=== PATIENT | female | born 1980 | race Caucasian/White ===

== ENCOUNTER → 2018-01-01 | Outpatient (REF) | payer MEDICAID | LOC: M LAB REF 18:59 | DX: F19.10 Other psychoactive substance abuse, uncomplicated (principal) ==

== ENCOUNTER → 2018-01-15 | Outpatient (REF) | payer MEDICAID | LOC: M LAB REF 17:49 | DX: F19.10 Other psychoactive substance abuse, uncomplicated (principal) ==

== ENCOUNTER → 2018-01-29 | Outpatient (REF) | payer MEDICAID | LOC: M LAB REF 16:51 | DX: F19.10 Other psychoactive substance abuse, uncomplicated (principal) ==

== ENCOUNTER → 2018-02-05 | Outpatient (REF) | payer MEDICAID ==
[2018-02-15 08:06] LABS: AMPHETAMINE SCREEN, URINE Negative ng/mL (Cutoff=1000); BARBITURATES SCREEN, URINE Negative ng/mL (Cutoff=200); BENZODIAZEPINES, URINE SCREEN Negative ng/mL (Cutoff=200); CANNABINOID SCREEN, URINE Negative ng/mL (Cutoff=20); COCAINE SCREEN, URINE Negative ng/mL (Cutoff=300); CREATININE, URINE 26.4 mg/dL (20.0-300.0); FENTANYL URINE SCREEN Negative pg/mL (Cutoff=2000); METHADONE, URINE SCREEN Negative ng/mL (Cutoff=300); NALOXONE RESULT Positive (.); OPIATE SCREEN, URINE Negative ng/mL (Cutoff=300); OXYCODONE, SCREEN, URINE Negative ng/mL (Cutoff=100); PCP SCREEN, URINE Negative ng/mL (Cutoff=25); SPECIFIC GRAVITY, URINE 1.009 (.); URINE BUPRENORPHINE Positive (.); URINE BUPRENORPHINE Positive (Cutoff=10); URINE BUPRENORPHINE See Final Results ng/mL (Cutoff=10); URINE BUPRENORPHINE CONFIRM 56 ng/mL (Cutoff=10); URINE NORBUPRENORPHINE Positive (.); URINE NORBUPRENORPHINE CONFIRM 182 ng/mL (Cutoff=10); pH, URINE 6.8 (4.5-8.9)
== END ==
LOC: M LAB REF 09:19
DX: F19.10 Other psychoactive substance abuse, uncomplicated (principal)

== ENCOUNTER → 2018-02-12 | Outpatient (REF) | payer MEDICAID ==
[2018-02-25 08:07] LABS: AMPHETAMINE SCREEN, URINE Negative ng/mL (Cutoff=1000); BARBITURATES SCREEN, URINE Negative ng/mL (Cutoff=200); BENZODIAZEPINES, URINE SCREEN Negative ng/mL (Cutoff=200); CANNABINOID SCREEN, URINE Negative ng/mL (Cutoff=20); COCAINE SCREEN, URINE Negative ng/mL (Cutoff=300); CREATININE, URINE 14.5 mg/dL (20.0-300.0); FENTANYL URINE SCREEN Negative pg/mL (Cutoff=2000); METHADONE, URINE SCREEN Negative ng/mL (Cutoff=300); NALOXONE RESULT Positive (.); OPIATE SCREEN, URINE Negative ng/mL (Cutoff=300); OXYCODONE, SCREEN, URINE Negative ng/mL (Cutoff=100); PCP SCREEN, URINE Negative ng/mL (Cutoff=25); URINE BUPRENORPHINE Positive (.); URINE BUPRENORPHINE Positive (Cutoff=10); URINE BUPRENORPHINE See Final Results ng/mL (Cutoff=10); URINE BUPRENORPHINE CONFIRM 32 ng/mL (Cutoff=10); URINE NORBUPRENORPHINE Positive (.); URINE NORBUPRENORPHINE CONFIRM 88 ng/mL (Cutoff=10); pH, URINE 5.6 (4.5-8.9)
== END ==
LOC: M LAB REF 07:43
DX: F19.10 Other psychoactive substance abuse, uncomplicated (principal)

== ENCOUNTER → 2018-03-05 | Outpatient (REF) | payer MEDICAID | LOC: M LAB REF 17:24 | DX: F19.10 Other psychoactive substance abuse, uncomplicated (principal) ==

== ENCOUNTER → 2018-03-07 | Outpatient (REF) | payer MEDICAID | LOC: M LAB REF 16:42 | DX: F19.10 Other psychoactive substance abuse, uncomplicated (principal) ==

== ENCOUNTER 2019-01-05 21:38 | Inpatient (IN) | payer MEDICAID, OTHER ==
[~2019-01-05] VITALS: Ht 154.9 cm; Wt 60.5 kg
[~2019-01-05 21:38] MED LIST: ASPI325T PO; DOCU5LIQ PO; NEUR600T PO; OXYC1TAB23 PO; SERO1TAB PO
[2019-01-05] MEDS ORDERED: SUBO8MIS SL (21:48)
[2019-01-05] MEDS ORDERED: GABA600T4 PO (21:48)
[2019-01-05] MEDS ORDERED: WELLTAB40 PO (21:48)
[2019-01-05] MEDS ORDERED: ADACEL/BOOSTRIX VACCINE (DIPHTH/PERTUSS/ACELL/TETANUS)0.5ML SYR (90715) IM ONE (22:15)
[2019-01-05] MEDS ORDERED: BACTRIM 160MG/800MG DS TAB PO ONE (22:15)
[2019-01-05 22:34] LABS: HEMATOCRIT 31.9 % (36.0-47.0); HEMOGLOBIN 10.6 g/dl (12.0-15.5); MEAN CORPUSCULAR HEMOGLOBIN 29.8 pg (27.0-33.0); MEAN CORPUSCULAR HGB CONC 33.2 g/dl (32.0-36.5); MEAN CORPUSCULAR VOLUME 89.6 fl (80.0-96.0); PLATELET COUNT, AUTOMATED 270 10^3/uL (150-450); RED BLOOD COUNT 3.56 10^6/uL (4.00-5.40); WHITE BLOOD COUNT 8.4 10^3/uL (4.0-10.0)
[2019-01-05 22:57] LABS: AMPHETAMINES LEVEL URINE POSITIVE (NEGATIVE); BARBITURATES URINE NEGATIVE (NEGATIVE); BENZODIAZEPINES URINE NEGATIVE (NEGATIVE); CANNABINOIDS URINE POSITIVE (NEGATIVE); COCAINE METABOLITE URINE NEGATIVE (NEGATIVE); METHADONE URINE NEGATIVE (NEGATIVE); OPIATES URINE NEGATIVE (NEGATIVE); PHENCYCLIDINE URINE NEGATIVE (NEGATIVE)
[2019-01-05 23:14] LABS: ACETAMINOPHEN LEVEL < 2.0 UG/ML (10.0-30.0); ALBUMIN 3.3 GM/DL (3.2-5.2); ALT/SGPT 31 U/L (12-78); BILIRUBIN,DIRECT < 0.1 MG/DL (0.0-0.2); BILIRUBIN,TOTAL 0.2 MG/DL (0.2-1.0); BLOOD UREA NITROGEN 8 MG/DL (7-18); CALCIUM LEVEL 8.1 MG/DL (8.5-10.1); CARBON DIOXIDE LEVEL 29 MEQ/L (21-32); CHLORIDE LEVEL 106 MEQ/L (98-107); CREATININE FOR GFR 0.61 MG/DL (0.55-1.30); ETHYL ALCOHOL (ETHANOL) < 0.003 % (0.000-0.010); GLOMERULAR FILTRATION RATE > 60.0 (>60); GLUCOSE, FASTING 95 MG/DL (70-100); POTASSIUM SERUM 4.1 MEQ/L (3.5-5.1); SALICYLATE LEVEL 1.8 MG/DL (5.0-30.0); SODIUM LEVEL 140 MEQ/L (136-145); TOTAL PROTEIN 6.3 GM/DL (6.4-8.2)
[2019-01-05 23:20] LABS: HCG, SERUM QUALITATIVE NEGATIVE (NEGATIVE)
[2019-01-06] MEDS ORDERED: MOM 30ML SUSPENSION UDC PO PRN (01:15)
[2019-01-06] MEDS ORDERED: MAALOX 30 ML SUSP *UDC PO PRN (01:15)
[2019-01-06] MEDS ORDERED: GABA600T4 PO (01:36)
[2019-01-06] MEDS ORDERED: WELLTAB40 PO (01:36)
[2019-01-06] MEDS ORDERED: SUBO8MIS SL (01:36)
[2019-01-06 02:40] VITALS: BP 110/68
[2019-01-06] MEDS: NICOTINE 21MG/24HR 1 EA TRANSDERMAL TD SCH ×2 (04:00→04:09)
[2019-01-06] MEDS: ACETAMINOPHEN TAB 650MG DOSE (2X325MG) PO PRN (08:51)
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
[2019-01-06] MEDS ORDERED: FLUoxetine 20 MG CAP PO ONE (11:00)
[2019-01-06] MEDS: buPROPion **XL** TABLET 150MG (WELLBUTRIN XL) PO SCH (11:24)
[2019-01-06] MEDS: CHLORHEXIDINE GLUCONATE 0.12 % 15ML UDC (PERIDEX ORAL RINSE) MT SCH ×3 (11:26→21:02)
[2019-01-06] MEDS: BUPRENORPHINE/NALOXONE 8-2MG SUBLINGUAL TABLET(SUBOXONE) SL SCH ×2 (11:26→21:03)
[2019-01-06] MEDS: GABAPENTIN 300 MG CAP PO SCH ×3 (11:26→21:03)
[2019-01-06] MEDS: DOXYCYCLINE HYCLATE 100 MG TAB PO SCH ×2 (11:59→21:03)
[2019-01-06] MEDS: BENZOCAINE 10% 9GM TUBE (ANBESOL) MT PRN ×2 (13:01→21:03)
--- NOTE | 2019-01-06 15:07 | HPEPDOC ---
[facility] Medical History & Physical Date of Admission Jan 06, 2019 Attending Physician: RAHEEM PRESTON DO History and Physical CHIEF COMPLAINT: Medical evaluation HISTORY OF PRESENT ILLNESS: This is a 38-year-old female with a pertinent past medical history of IV drug abuse who was admitted [facility] [place] for depression and suicide ideation. She recently used IV meth one week prior on her right wrist. She states that yesterday she noticed swelling in her right wrist had tenderness on palpation some erythema around the insertion site. There is currently a scab. She has not picked on it and hasnt tried any antibiotic therapy for it. She is wondering if she can get fevers, chills, night sweats, chest pain, upper respiratory symptoms, shortness of breath, abdominal pain, trouble breathing. PAST MEDICAL HISTORY: 1. Chronic Hepatitis C untreated Past psychiatric history 1. Anxiety 2. Depression 3. IV drug abuse PAST SURGICAL HISTORY: 1. Femur fracture on the left side treated with traction at 2. Left ankle fracture repair 2012 SOCIAL HISTORY: Education: ged, 2 semester college for [employer] Social Support: father and stepmother Marital status: Single Resides in: rents a home from her father and stepmother Children: 2 kids she has joint custody/visitation with her father of her 10y/o son, 4y/o daughter is with daughter's father but does have custody of Employment: unemployed, father does help her out Tobacco use: 30 pack years ETOH: Denies Illicit drug use: Prior IV drug abuse heroin 6 years ago, meth 1 week prior, opiate abuse Tattoos done unprofessionally: No Other relevant social factors: Legal: correction in past for DUIs, released 08/03 FAMILY HISTORY: No family medical problems ALLERGIES: Please see below. REVIEW OF SYSTEMS: Unless stated in the HPI the remaining 11 point review systems negative HOME MEDICATIONS: Please see below. PHYSICAL EXAMINATION: VITAL SIGNS: Temperature , pulse , respiratory rate , blood pressure , pulse oximetry % on room air. GENERAL APPEARANCE: Pleasant 32-year-old female does not appear in acute distress sitting up appropriately answering questions HEENT: Atraumatic normocephalic pupils equal round and reactive. Multiple facial sores appreciated in the lower half of the face more prominent around the nasal area. Left nostril has superficial sore measuring about 2.5 x 3. No pus or foul smell noted. No tenderness on palpation. Consistent with meth sores. Ear canals no cerumen noted. Pearly white flat tympanic membranes CARDIOVASCULAR: Regular rate and rhythm normal S1-S2 sounds no audible murmurs rubs or gallops. LUNGS: Clear to auscultate bilaterally no audible wheezing rhonchi Rales. ABDOMEN: Soft abdomen non-distended. EXTREMITIES: No lower extremity edema or calf tenderness. Right upper extremity: 2 x 2.5 cm dark eschar scab on the right dorsal wrist. Indurated erythematous border. Minimal tenderness on touch. Slightly warm. 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 LABORATORY DATA: See below. IMAGING: None MICROBIOLOGY: Please see below. ASSESSMENT: This is a 38-year-old female with a pertinent past medical history of IV drug abuse who was admitted [facility] for depression and suicide ideation. PLAN: 1. Recent IV drug use. Has a dark eschar scab on the right dorsal of the wrist measuring about 2.5 x 2cm in size. Need to cover for MRSA and start doxycycline 100 mg twice a day for 5 days. Can reassess in 5 days if symptoms have not resolved. 2. Psychiatric history. Follow psychiatric recommendations 3. Upon discharge to Follow PCP in 7-10 Days. Vital Signs Vital Signs Date Time Temp Pulse Resp B/P (MAP) Pulse Ox O2 Delivery O2 Flow Rate FiO2 01/06/19 02:40 99.0 78 18 110/68 98 01/05/19 21:38 Room Air Laboratory Data Labs 24H Laboratory Tests 2 01/05/19 22:20: Nucleated Red Blood Cells % (auto) 0.0, Anion Gap 5L, Glomerular Filtration Rate > 60.0, Calcium Level 8.1L, Aspartate Amino Transf (AST/SGOT) 26, Alanine Aminotransferase (ALT/SGPT) 31, Alkaline Phosphatase 60, Total Bilirubin 0.2, Direct Bilirubin < 0.1, Total Protein 6.3L, Albumin 3.3, Albumin/Globulin Ratio 1.10, Thyroid Stimulating Hormone (TSH) 0.980, Human Chorionic Gonadotropin, Qual NEGATIVE, Salicylates Level 1.8L, Urine Amphetamines Screen POSITIVEH, Urine Benzodiazepines Screen NEGATIVE, Urine Opiates Screen NEGATIVE, Urine Methadone Screen NEGATIVE, Acetaminophen Level < 2.0L, Urine Barbiturates Screen NEGATIVE, Urine Phencyclidine Screen NEGATIVE, Urine Cocaine Metabolite Screen NEGATIVE, Urine Cannabinoids Screen POSITIVEH, Ethyl Alcohol Level < 0.003 CBC/BMP Laboratory Tests 01/05/19 22:20 Red Blood Count 3.56 L, Mean Corpuscular Volume 89.6, Mean Corpuscular Hemoglobin 29.8, Mean Corpuscular Hemoglobin Concent 33.2, Red Cell Distribution Width 13.2 Home Medications Scheduled Buprenorphine HCl/Naloxone HCl (Suboxone 8 mg-2 mg Sl Film) 1 Each Film, 1 STRIP SL BID for . Bupropion HCl (Wellbutrin Xl) 300 Mg Tab.er.24h, 300 MG PO DAILY Gabapentin (Gabapentin) 600 Mg Tablet, 600 MG PO TID Allergies Coded Allergies: Penicillins (Verified Allergy, Unknown, 01/05/19) GME ATTESTATION GME ATTESTATION My faculty preceptor for this patient encounter was physically present during the encounter and was fully available. All aspects of the patient interview, examination, medical decision making process, and medical care plan development were reviewed and approved by the faculty preceptor. The faculty preceptor is aware and concurs with the plan as stated in the body of this note and will attest to such by his/her cosignature. PATRICIA WOLFF DO Jan 06, 2019 15:07
[2019-01-06 18:00] VITALS: BP 101/62
[2019-01-06] MEDS: traZODone 50 MG TAB PO PRN (21:03)
[2019-01-06] MEDS: hydrOXYzine 50 MG TAB PO PRN (21:03)
[2019-01-06] MEDS: NYSTATIN CREAM 15 GM TOP PRN (22:09)
[2019-01-07 06:13] VITALS: BP 122/58
[2019-01-07] MEDS: FLUoxetine 20 MG CAP PO SCH (08:20)
[2019-01-07] MEDS: DOXYCYCLINE HYCLATE 100 MG TAB PO SCH ×2 (08:20→20:32)
[2019-01-07] MEDS: NICOTINE 21MG/24HR 1 EA TRANSDERMAL TD SCH (08:21)
[2019-01-07] MEDS: GABAPENTIN 300 MG CAP PO SCH ×3 (08:21→20:32)
[2019-01-07] MEDS: CHLORHEXIDINE GLUCONATE 0.12 % 15ML UDC (PERIDEX ORAL RINSE) MT SCH ×3 (08:21→20:31)
[2019-01-07] MEDS: BUPRENORPHINE/NALOXONE 8-2MG SUBLINGUAL TABLET(SUBOXONE) SL SCH ×2 (08:21→20:32)
[2019-01-07] MEDS: buPROPion **XL** TABLET 150MG (WELLBUTRIN XL) PO SCH (08:21)
--- NOTE | 2019-01-07 08:49 | MHIPNPDOC ---
[facility] Progress Note Progress Note DATE OF SERVICE: 01/07/19 HISTORY: Patient is a 38 -year-old , female, with a long history of substance use who presented to ED endorsing depression and SI with plan to cut her wrists due to relapsing on methamphetamine for 1 wk with no use prior 2days admission after 4months sober off opiates. She has a history of IV drug use. Pt endorsing depression, guilt secondary to relapse, anxiety, insomnia, and poor concentration in the ED. Pt stated she was focused on being a good parent to her 2 kids she has joint custody and visitation in the ED. VITAL SIGNS: See below. NEW TEST RESULTS: See below. CURRENT MEDICATIONS: See below. MENTAL STATUS EXAMINATION: General Appearance: unkempt, disheveled, appears stated age, hospital scrubs/clothing, other (sores on face) Build: average Demeanor: average, very figety Eye Contact: fair Activity: anxious Behavior: cooperative Speech: clear, spontaneous, reg/rate,rhythm,volume Mood: depressed, anxious Mood anxious Affect: constricted, flat, congruent, anxious Thought Process: logical/linear, depressed, intact Thought Content (Delusions): none reported, other (fleeting SI, no plan/intent. Denies HI, AVH) Thought Content (Other): none reported, appropriate, coherent Thought Content (Aggressive): none reported Perception (Hallucinations): none reported Perception (Other): none reported Cognition (Impairment of): none reported Cognition(Intelligence Est.): average Oriented: Awake, Alert, Oriented times three Insight: fair Judgment: Fair DIAGNOSES: Depression Unspecified r/o Generalized Anxiety D/O r/o Major Depressive D/O recurrent severe w/o psychosis r/o substance induce depression and anxiety secondary methamphetamines Methamphetamine/cannabis use d/o History opiate use d/o ASSESSMENT:Pt seen and states she's feels the same and is still having fleeting thoughts of suicide (no plan/intent) that just come with no trigger she can think of. States at times they ease anxiety and other times the make it worse. States she's tolerating her medication well and feels it's beneficial. Slept well last night. States she did not go to groups yesterday and encouraged to go today as part of treatment as they are there to help her learn coping skills for depression and anxiety. Denies HI, hallucination, delusions. Feels safe here. MANAGEMENT PLAN: continue plan Medications: prozac 20mg daily vistaril 50mg q6hr prn anxiety Suboxone 8/2mg 1 tab BID SL Wellbutrin Xl 300 mg DAILY Gabapentin 600 mg TID Atarax 50 mg Q6HP PRN PO ANXIETY/AGITATION Trazodone 50 mg QHSP PRN PO INSOMNIA TIME SPENT: 30 minutes. Vital Signs Vital Signs Date Time Temp Pulse Resp B/P (MAP) Pulse Ox O2 Delivery O2 Flow Rate FiO2 01/07/19 06:13 98.7 79 12 122/58 (79) 01/06/19 02:40 98 01/05/19 21:38 Room Air Current Medications Current Medications Acetaminophen (Tylenol Tab) 650 mg Q6HP PRN PO HEADACHE or DISCOMFORT Last administered on 01/06/19 08:51; Start 01/06/19 at 01:15 Al Hydrox/Mg Hydrox/Simethicone (Mylanta) 30 ml Q4HP PRN PO HEARTBURN/INDIGESTION; Start 01/06/19 at 01:15 Benzocaine (Anbesol Gel) 1 dose QID PRN MT PAIN OR DISCOMFORT Last administered on 01/06/19 21:03; Start 01/06/19 at 10:30 Buprenorphine/ Naloxone (Suboxone 8/2mg) 1 tab BID SL Last administered on 01/07/19 08:21; Start 01/06/19 at 09:00 Bupropion HCl (Wellbutrin Xl) 300 mg DAILY PO Last administered on 01/07/19 08:21; Start 01/06/19 at 09:00 Chlorhexidine Gluconate (Peridex Oral Rinse) 15 ml TID MT Last administered on 01/07/19 08:21; Start 01/06/19 at 09:00 Doxycycline Hyclate (Vibramycin) 100 mg BID@0900,2100 PO Last administered on 01/07/19 08:20; Start 01/06/19 at 09:00; Stop 01/11/19 at 08:59 Fluoxetine HCl (PROzac) 20 mg DAILY PO Last administered on 01/07/19 08:20; Start 01/07/19 at 09:00 Gabapentin (Neurontin) 600 mg TID PO Last administered on 4/24/19at 08:21; Start 01/06/19 at 09:00 Home Med (Med Rec Complete!) ASDIRECTED XX ; Start 01/06/19 at 01:45; Stop 01/06/19 at 01:45; Status DC Hydroxyzine HCl (Atarax) 50 mg Q6HP PRN PO ANXIETY/AGITATION Last administered on 01/06/19at 21:03; Start 01/06/19 at 10:30 Magnesium Hydroxide (Milk Of Magnesia) 30 ml DAILYPRN PRN PO CONSTIPATION; Start 01/06/19 at 01:15 Nicotine (Nicoderm Cq 21mg) 1 patch DAILY TD Last administered on 01/07/19 08:21; Start 01/06/19 at 01:17 Nystatin (Mycostatin) 1 dose Q4HP PRN TOP ITCHING/SWELLING Last administered on 01/06/19at 22:09; Start 01/06/19 at 10:30 Trazodone HCl (Desyrel) 50 mg QHSP PRN PO INSOMNIA Last administered on 01/06/19at 21:03; Start 01/06/19 at 01:15 Allergies Coded Allergies: Penicillins (Verified Allergy, Unknown, 01/05/19) RAHEEM PRESTON DO Jan 07, 2019 8:49 am
--- NOTE | 2019-01-07 11:35 | IPNPDOC ---
Date Seen The patient was seen on 01/07/19. Progress Note SUBJECTIVE: Patient is a 38-year-old female with a pertinent past medical history of IV drug abuse who was admitted [facility] for depression and suicide ideat ion and complaining of right wrist eschar scar s/p IV drug use 1 week prior. States that she started the doxycycline last night and has not noticed any change in lesion. She tolerated the medication well so far. Nausea vomiting diarrhea fevers chills. She has no complaints today. OBJECTIVE PHYSICAL EXAMINATION: VITAL SIGNS: Please see below. GENERAL: Pleasant 32-year-old female does not appear in acute distress sitting up appropriately answering questions HEENT: Atraumatic normocephalic pupils equal round and reactive. Multiple facial sores appreciated in the lower half of the face more prominent around the nasal area. Left nostril has superficial sore measuring about 2.5 x 3. No pus or foul smell noted. No tenderness on palpation. Consistent with meth sores. Ear canals no cerumen noted. Pearly white flat tympanic membranes CARDIOVASCULAR: Regular rate and rhythm normal S1-S2 sounds no audible murmurs rubs or gallops. LUNGS: Clear to auscultate bilaterally no audible wheezing rhonchi Rales. ABDOMEN: Soft abdomen non-distended. EXTREMITIES: No lower extremity edema or calf tenderness. Right upper extremity: 2 x 2.5 cm dark eschar scab on the right dorsal wrist. Indurated erythematous border. Minimal tenderness on touch. Slightly warm. 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 LABORATORY DATA, IMAGING STUDIES, MICROBIOLOGY: Please see below. ASSESSMENT AND PLAN:ASSESSMENT: This is a 38-year-old female with a pertinent past medical history of IV drug abuse who was admitted [facility] for depression and suicide ideation. PLAN: 1. Recent IV drug use. Has a dark eschar scab on the right dorsal of the wrist measuring about 2.5 x 2cm in size. Need to cover for MRSA and start doxycycline 100 mg twice a day for 5 days. Can reassess in 5 days if symptoms have not resolved. Continue as planned 2. Psychiatric history. Follow psychiatric recommendations 3. Upon discharge to Follow PCP in 7-10 Days. A-FIB/CHADSVASC A-FIB History Current/History of A-Fib/PAF?: No VS, I&O, 24H, Fishbone Vital Signs/I&O Vital Signs Date Time Temp Pulse Resp B/P (MAP) Pulse Ox O2 Delivery O2 Flow Rate FiO2 01/07/19 06:13 98.7 79 12 122/58 (79) 01/06/19 02:40 98 01/05/19 21:38 Room Air GME ATTESTATION GME ATTESTATION My faculty preceptor for this patient encounter was physically present during the encounter and was fully available. All aspects of the patient interview, examination, medical decision making process, and medical care plan development were reviewed and approved by the faculty preceptor. The faculty preceptor is aware and concurs with the plan as stated in the body of this note and will attest to such by his/her cosignature. PATRICIA WOLFF DO Jan 07, 2019 11:35
[2019-01-07] MEDS: hydrOXYzine 50 MG TAB PO PRN (16:49)
[2019-01-07] MEDS: NYSTATIN CREAM 15 GM TOP PRN ×2 (16:49→20:34)
[2019-01-07 18:00] VITALS: BP 115/72
[2019-01-07] MEDS: BENZOCAINE 10% 9GM TUBE (ANBESOL) MT PRN (20:32)
[2019-01-07] MEDS: traZODone 50 MG TAB PO PRN (20:34)
[2019-01-07] MEDS: ACETAMINOPHEN TAB 650MG DOSE (2X325MG) PO PRN (20:35)
[2019-01-08 07:05] VITALS: BP 108/60
[2019-01-08] MEDS: FLUoxetine 20 MG CAP PO SCH (08:45)
[2019-01-08] MEDS: BUPRENORPHINE/NALOXONE 8-2MG SUBLINGUAL TABLET(SUBOXONE) SL SCH ×2 (08:45→20:49)
[2019-01-08] MEDS: buPROPion **XL** TABLET 150MG (WELLBUTRIN XL) PO SCH (08:45)
[2019-01-08] MEDS: DOXYCYCLINE HYCLATE 100 MG TAB PO SCH ×2 (08:45→20:49)
[2019-01-08] MEDS: NICOTINE 21MG/24HR 1 EA TRANSDERMAL TD SCH (08:45)
[2019-01-08] MEDS: GABAPENTIN 300 MG CAP PO SCH ×3 (08:45→20:49)
[2019-01-08] MEDS: CHLORHEXIDINE GLUCONATE 0.12 % 15ML UDC (PERIDEX ORAL RINSE) MT SCH ×3 (08:46→20:49)
--- NOTE | 2019-01-08 10:20 | MHIPNPDOC ---
[facility] Progress Note Progress Note DATE OF SERVICE: 01/08/19 HISTORY: Patient is a 38 -year-old , female, with a long history of substance use who presented to ED endorsing depression and SI with plan to cut her wrists due to relapsing on methamphetamine for 1 wk with no use prior 2days admission after 4months sober off opiates. She has a history of IV drug use. Pt endorsing depression, guilt secondary to relapse, anxiety, insomnia, and poor concentration in the ED. Pt stated she was focused on being a good parent to her 2 kids she has joint custody and visitation in the ED. VITAL SIGNS: See below. NEW TEST RESULTS: See below. CURRENT MEDICATIONS: See below. MENTAL STATUS EXAMINATION: General Appearance: unkempt, disheveled, appears stated age, hospital scrubs/clothing, other (sores on face) Build: average Demeanor: average, very figety Eye Contact: fair Activity: anxious Behavior: cooperative Speech: clear, spontaneous, reg/rate,rhythm,volume Mood: depressed, anxious Mood "mostly down" Affect: constricted, flat, congruent, anxious Thought Process: logical/linear, depressed, intact Thought Content (Delusions): none reported, other (fleeting SI, no plan/intent. Denies HI, AVH) Thought Content (Other): none reported, appropriate, coherent Thought Content (Aggressive): none reported Perception (Hallucinations): none reported Perception (Other): none reported Cognition (Impairment of): none reported Cognition(Intelligence Est.): average Oriented: Awake, Alert, Oriented times three Insight: fair Judgment: Fair DIAGNOSES: Depression Unspecified r/o Generalized Anxiety D/O r/o Major Depressive D/O recurrent severe w/o psychosis r/o substance induce depression and anxiety secondary methamphetamines Methamphetamine/cannabis use d/o History opiate use d/o ASSESSMENT:Pt seen and states she's feels like she's "up and down... mostly down though." Denies SI today. States she's tolerating her medication well and feels it's beneficial. Agreeable to increasing prozac for mood. Slept well last night. States she did not go to groups yesterday again mostly due to tooth pain and feeling self-conscious about her face and encouraged to go today as part of treatment as they are there to help her learn coping skills for depression and anxiety. Advised she can make some thing for her kids to give them when she go es home which she liked. Denies HI, hallucination, delusions. Feels safe here. MANAGEMENT PLAN: continue plan. increase prozac. Medications: prozac 40mg daily vistaril 50mg q6hr prn anxiety Suboxone 8/2mg 1 tab BID SL Wellbutrin Xl 300 mg DAILY Gabapentin 600 mg TID Atarax 50 mg Q6HP PRN PO ANXIETY/AGITATION Trazodone 50 mg QHSP PRN PO INSOMNIA TIME SPENT: 30 minutes. Vital Signs Vital Signs Date Time Temp Pulse Resp B/P (MAP) Pulse Ox O2 Delivery O2 Flow Rate FiO2 01/08/19 07:05 99.1 67 14 108/60 (76) 01/06/19 02:40 98 01/05/19 21:38 Room Air Current Medications Current Medications Acetaminophen (Tylenol Tab) 650 mg Q6HP PRN PO HEADACHE or DISCOMFORT Last administered on 01/07/19 20:35; Start 01/06/19 at 01:15 Al Hydrox/Mg Hydrox/Simethicone (Mylanta) 30 ml Q4HP PRN PO HEARTBURN/INDIGESTION; Start 01/06/19 at 01:15 Benzocaine (Anbesol Gel) 1 dose QID PRN MT PAIN OR DISCOMFORT Last administered on 01/07/19 20:32; Start 01/06/19 at 10:30 Buprenorphine/ Naloxone (Suboxone 8/2mg) 1 tab BID SL Last administered on 01/08/19 08:45; Start 01/06/19 at 09:00 Bupropion HCl (Wellbutrin Xl) 300 mg DAILY PO Last administered on 01/08/19 08:45; Start 01/06/19 at 09:00 Chlorhexidine Gluconate (Peridex Oral Rinse) 15 ml TID MT Last administered on 01/08/19 08:46; Start 01/06/19 at 09:00 Doxycycline Hyclate (Vibramycin) 100 mg BID@0900,2100 PO Last administered on 01/08/19 08:45; Start 01/06/19 at 09:00; Stop 01/11/19 at 08:59 Fluoxetine HCl (PROzac) 20 mg DAILY PO Last administered on 01/08/19 08:45; Start 01/07/19 at 09:00 Gabapentin (Neurontin) 600 mg TID PO Last administered on 01/08/19 08:45; Start 01/06/19 at 09:00 Home Med (Med Rec Complete!) ASDIRECTED XX ; Start 01/06/19 at 01:45; Stop 01/06/19 at 01:45; Status DC Hydroxyzine HCl (Atarax) 50 mg Q6HP PRN PO ANXIETY/AGITATION Last administered on 01/07/19 16:49; Start 01/06/19 at 10:30 Magnesium Hydroxide (Milk Of Magnesia) 30 ml DAILYPRN PRN PO CONSTIPATION; Start 01/06/19 at 01:15 Nicotine (Nicoderm Cq 21mg) 1 patch DAILY TD Last administered on 01/08/19 08:45; Start 01/06/19 at 01:17 Nystatin (Mycostatin) 1 dose Q4HP PRN TOP ITCHING/SWELLING Last administered on 01/07/19 20:34; Start 01/06/19 at 10:30 Trazodone HCl (Desyrel) 50 mg QHSP PRN PO INSOMNIA Last administered on 12/16 20:34; Start 01/06/19 at 01:15 Allergies Coded Allergies: Penicillins (Verified Allergy, Unknown, 01/05/19) A-FIB/CHADSVASC A-FIB History Current/History of A-Fib/PAF?: No Current Oral Anticoagulant The: No Treatment Treatment ordered: NONE Reason Anticoagulant not given: Not indicated/[id number] RAHEEM PRESTON DO Jan 08, 2019 10:20
[2019-01-08 17:58] VITALS: BP 111/58
[2019-01-08] MEDS: traZODone 50 MG TAB PO PRN (20:49)
[2019-01-08] MEDS: NYSTATIN CREAM 15 GM TOP PRN (20:51)
[2019-01-08] MEDS: BENZOCAINE 10% 9GM TUBE (ANBESOL) MT PRN (20:51)
[2019-01-09 06:13] VITALS: BP 118/59
[2019-01-09] MEDS: GABAPENTIN 300 MG CAP PO SCH ×3 (08:34→20:08)
[2019-01-09] MEDS: DOXYCYCLINE HYCLATE 100 MG TAB PO SCH ×2 (08:34→20:08)
[2019-01-09] MEDS: BUPRENORPHINE/NALOXONE 8-2MG SUBLINGUAL TABLET(SUBOXONE) SL SCH ×2 (08:34→20:08)
[2019-01-09] MEDS: buPROPion **XL** TABLET 150MG (WELLBUTRIN XL) PO SCH (08:34)
[2019-01-09] MEDS: FLUoxetine 20 MG CAP PO SCH (08:34)
[2019-01-09] MEDS: NICOTINE 21MG/24HR 1 EA TRANSDERMAL TD SCH (08:34)
[2019-01-09] MEDS: CHLORHEXIDINE GLUCONATE 0.12 % 15ML UDC (PERIDEX ORAL RINSE) MT SCH ×3 (08:35→20:08)
--- NOTE | 2019-01-09 09:46 | MHIPNPDOC ---
[facility] Progress Note Progress Note DATE OF SERVICE: 01/09/19 HISTORY: Patient is a 38 -year-old , female, with a long history of substance use who presented to ED endorsing depression and SI with plan to cut her wrists due to relapsing on methamphetamine for 1 wk with no use prior 2days admission after 4months sober off opiates. She has a history of IV drug use. Pt endorsing depression, guilt secondary to relapse, anxiety, insomnia, and poor concentration in the ED. Pt stated she was focused on being a good parent to her 2 kids she has joint custody and visitation in the ED. VITAL SIGNS: See below. NEW TEST RESULTS: See below. CURRENT MEDICATIONS: See below. MENTAL STATUS EXAMINATION: General Appearance: unkempt, disheveled, appears stated age, hospital scrubs/clothing, other (sores on face) Build: average Demeanor: average, less fidgety Eye Contact: good Activity: anxious Behavior: cooperative Speech: clear, spontaneous, reg/rate,rhythm,volume Mood: less depressed, less anxious Mood "better" Affect: less constricted, congruent, less anxious Thought Process: logical/linear, depressed, intact Thought Content (Delusions): none reported, denies SI/HI, AVH Thought Content (Other): none reported, appropriate, coherent Thought Content (Aggressive): none reported Perception (Hallucinations): none reported Perception (Other): none reported Cognition (Impairment of): none reported Cognition(Intelligence Est.): average Oriented: Awake, Alert, Oriented times three Insight: fair Judgment: Fair DIAGNOSES: Depression Unspecified r/o Generalized Anxiety D/O r/o Major Depressive D/O recurrent severe w/o psychosis r/o substance induce depression and anxiety secondary methamphetamines Methamphetamine/cannabis use d/o History opiate use d/o ASSESSMENT:Pt seen and states she's feels "better" today after prozac increased Denies SI and fleeting SI today. Endorses anxiety and encouraged to take her prn vistaril to receive it as she states she didn't take any yesterday or this am. States she's tolerating her medication well and feels it's beneficial. States she did going to groups today and feels they're beneficial. She is social in the milieu and day room. D/c conservation planner looking into inpatient rehabs for pt and she is hopeful to get into one soon and work on her sobriety. Denies SI/HI, hallucination, delusions. Feels safe here. MANAGEMENT PLAN: continue plan. increase prozac. Medications: prozac 40mg daily vistaril 50mg q6hr prn anxiety Suboxone 8/2mg 1 tab BID SL Wellbutrin Xl 300 mg DAILY Gabapentin 600 mg TID Atarax 50 mg Q6HP PRN PO ANXIETY/AGITATION Trazodone 50 mg QHSP PRN PO INSOMNIA TIME SPENT: 30 minutes. Vital Signs Vital Signs Date Time Temp Pulse Resp B/P (MAP) Pulse Ox O2 Delivery O2 Flow Rate FiO2 01/09/19 06:13 98.9 68 18 118/59 (78) 01/06/19 02:40 98 01/05/19 21:38 Room Air Current Medications Current Medications Acetaminophen (Tylenol Tab) 650 mg Q6HP PRN PO HEADACHE or DISCOMFORT Last administered on 01/07/19 20:35; Start 01/06/19 at 01:15 Al Hydrox/Mg Hydrox/Simethicone (Mylanta) 30 ml Q4HP PRN PO HEARTBURN/INDIGESTION; Start 01/06/19 at 01:15 Benzocaine (Anbesol Gel) 1 dose QID PRN MT PAIN OR DISCOMFORT Last administered on 01/08/19 20:51; Start 01/06/19 at 10:30 Buprenorphine/ Naloxone (Suboxone 8/2mg) 1 tab BID SL Last administered on 01/09/19 08:34; Start 01/06/19 at 09:00 Bupropion HCl (Wellbutrin Xl) 300 mg DAILY PO Last administered on 01/09/19 08:34; Start 01/06/19 at 09:00 Chlorhexidine Gluconate (Peridex Oral Rinse) 15 ml TID MT Last administered on 01/09/19 08:35; Start 01/06/19 at 09:00 Doxycycline Hyclate (Vibramycin) 100 mg BID@0900,2100 PO Last administered on 01/09/19 08:34; Start 01/06/19 at 09:00; Stop 01/11/19 at 08:59 Fluoxetine HCl (PROzac) 20 mg DAILY PO Last administered on 01/09/19 08:34; Start 01/07/19 at 09:00 Gabapentin (Neurontin) 600 mg TID PO Last administered on 01/09/19 08:34; Start 01/06/19 at 09:00 Home Med (Med Rec Complete!) ASDIRECTED XX ; Start 01/06/19 at 01:45; Stop 01/06/19 at 01:45; Status DC Hydroxyzine HCl (Atarax) 50 mg Q6HP PRN PO ANXIETY/AGITATION Last administered on 01/07/19at 16:49; Start 01/06/19 at 10:30 Magnesium Hydroxide (Milk Of Magnesia) 30 ml DAILYPRN PRN PO CONSTIPATION; Start 01/06/19 at 01:15 Nicotine (Nicoderm Cq 21mg) 1 patch DAILY TD Last administered on 01/09/19 08:34; Start 01/06/19 at 01:17 Nystatin (Mycostatin) 1 dose Q4HP PRN TOP ITCHING/SWELLING Last administered on 01/08/19 20:51; Start 01/06/19 at 10:30 Trazodone HCl (Desyrel) 50 mg QHSP PRN PO INSOMNIA Last administered on 01/08/19 20:49; Start 01/06/19 at 01:15 Allergies Coded Allergies: Penicillins (Verified Allergy, Unknown, 01/05/19) A-FIB/CHADSVASC A-FIB History Current/History of A-Fib/PAF?: No Current Oral Anticoagulant The: No Treatment Treatment ordered: NONE Reason Anticoagulant not given: Not indicated/[id number] RAHEEM PRESTON DO Jan 09, 2019 09:24
[2019-01-09] MEDS: hydrOXYzine 50 MG TAB PO PRN (11:12)
[2019-01-09 18:06] VITALS: BP 97/52
[2019-01-09] MEDS: traZODone 50 MG TAB PO PRN (20:08)
[2019-01-09] MEDS: BENZOCAINE 10% 9GM TUBE (ANBESOL) MT PRN ×2 (21:34→21:43)
[2019-01-09] MEDS: NYSTATIN CREAM 15 GM TOP PRN (21:45)
[2019-01-10 06:13] VITALS: BP 105/56
[2019-01-10] MEDS: FLUoxetine 20 MG CAP PO SCH (09:01)
[2019-01-10] MEDS: BENZOCAINE 10% 9GM TUBE (ANBESOL) MT PRN (09:01)
[2019-01-10] MEDS: GABAPENTIN 300 MG CAP PO SCH ×3 (09:01→20:20)
[2019-01-10] MEDS: BUPRENORPHINE/NALOXONE 8-2MG SUBLINGUAL TABLET(SUBOXONE) SL SCH ×2 (09:01→20:20)
[2019-01-10] MEDS: DOXYCYCLINE HYCLATE 100 MG TAB PO SCH ×2 (09:01→20:20)
[2019-01-10] MEDS: NICOTINE 21MG/24HR 1 EA TRANSDERMAL TD SCH (09:01)
[2019-01-10] MEDS: buPROPion **XL** TABLET 150MG (WELLBUTRIN XL) PO SCH (09:01)
[2019-01-10] MEDS: CHLORHEXIDINE GLUCONATE 0.12 % 15ML UDC (PERIDEX ORAL RINSE) MT SCH ×3 (09:01→20:20)
[2019-01-10] MEDS: NYSTATIN CREAM 15 GM TOP PRN ×2 (12:58→20:30)
[2019-01-10] MEDS: hydrOXYzine 50 MG TAB PO PRN (12:58)
[2019-01-10 18:29] VITALS: BP 111/69
[2019-01-10] MEDS: traZODone 50 MG TAB PO PRN (20:20)
[2019-01-11 06:28] VITALS: BP 99/50
[2019-01-11] MEDS: BUPRENORPHINE/NALOXONE 8-2MG SUBLINGUAL TABLET(SUBOXONE) SL SCH ×2 (09:10→20:48)
[2019-01-11] MEDS: FLUoxetine 20 MG CAP PO SCH (09:10)
[2019-01-11] MEDS: GABAPENTIN 300 MG CAP PO SCH ×3 (09:10→20:46)
[2019-01-11] MEDS: buPROPion **XL** TABLET 150MG (WELLBUTRIN XL) PO SCH (09:10)
[2019-01-11] MEDS: CHLORHEXIDINE GLUCONATE 0.12 % 15ML UDC (PERIDEX ORAL RINSE) MT SCH ×3 (09:10→20:46)
[2019-01-11] MEDS: NICOTINE 21MG/24HR 1 EA TRANSDERMAL TD SCH (09:11)
[2019-01-11] MEDS: SODIUM CHLORIDE NASAL 0.65% SPRAY BTL (OCEAN) SCH ×2 (16:00→20:45)
[2019-01-11 18:44] VITALS: BP 131/67
[2019-01-11] MEDS: traZODone 50 MG TAB PO PRN (20:46)
[2019-01-11] MEDS: NYSTATIN CREAM 15 GM TOP PRN (20:47)
[2019-01-12 06:45] VITALS: BP 97/53
[2019-01-12] MEDS: FLUoxetine 20 MG CAP PO SCH (09:16)
[2019-01-12] MEDS: buPROPion **XL** TABLET 150MG (WELLBUTRIN XL) PO SCH (09:16)
[2019-01-12] MEDS: GABAPENTIN 300 MG CAP PO SCH ×3 (09:16→20:44)
[2019-01-12] MEDS: SODIUM CHLORIDE NASAL 0.65% SPRAY BTL (OCEAN) SCH ×3 (09:16→20:45)
[2019-01-12] MEDS: CHLORHEXIDINE GLUCONATE 0.12 % 15ML UDC (PERIDEX ORAL RINSE) MT SCH ×3 (09:16→20:44)
[2019-01-12] MEDS: NICOTINE 21MG/24HR 1 EA TRANSDERMAL TD SCH (09:17)
[2019-01-12] MEDS: BUPRENORPHINE/NALOXONE 8-2MG SUBLINGUAL TABLET(SUBOXONE) SL SCH ×2 (09:46→20:44)
--- NOTE | 2019-01-12 10:09 | MHIPNPDOC ---
[facility] Progress Note Progress Note DATE OF SERVICE: 01/12/19 HISTORY: Patient is a 38 -year-old , female, with a long history of substance use who presented to ED endorsing depression and SI with plan to cut her wrists due to relapsing on methamphetamine for 1 wk with no use prior 2days admission after 4months sober off opiates. She has a history of IV drug use. Pt endorsing depression, guilt secondary to relapse, anxiety, insomnia, and poor concentration in the ED. Pt stated she was focused on being a good parent to her 2 kids she has joint custody and visitation in the ED. VITAL SIGNS: See below. NEW TEST RESULTS: See below. CURRENT MEDICATIONS: See below. MENTAL STATUS EXAMINATION: General Appearance: unkempt, disheveled, appears stated age, hospital scrubs/clothing, other (improved sores on face) Build: average Demeanor: average, less fidgety Eye Contact: good Activity: less anxious Behavior: cooperative Speech: clear, spontaneous, reg/rate,rhythm,volume Mood: less depressed, less anxious Mood "alright" Affect: less constricted, congruent, less anxious Thought Process: logical/linear, depressed, intact Thought Content (Delusions): none reported, denies SI/HI, AVH Thought Content (Other): none reported, appropriate, coherent Thought Content (Aggressive): none reported Perception (Hallucinations): none reported Perception (Other): none reported Cognition (Impairment of): none reported Cognition(Intelligence Est.): average Oriented: Awake, Alert, Oriented times three Insight: fair Judgment: Fair DIAGNOSES: Depression Unspecified r/o Generalized Anxiety D/O r/o Major Depressive D/O recurrent severe w/o psychosis r/o substance induce depression and anxiety secondary methamphetamines Methamphetamine/cannabis use d/o History opiate use d/o ASSESSMENT:Pt seen and states she's feels "alright" today and had a good weekend. Denies SI and fleeting SI today. States anxiety greatly improved. C/o nasal congestion at night and encouraged to take atarax prior to bed as it's antihistamine and can help. States she's tolerating her medication well and fe els they're beneficial. States she's going to groups and feels they're beneficial. She is social in the milieu and day room. D/c management planner looking into inpatient rehabs for pt and she is hopeful to get into one soon and work on her sobriety. Askiing if she can go home while she waits for rehab bad as she feels much better and is missing her kids. Denies SI/HI, hallucination, delusions. Feels safe here. MANAGEMENT PLAN: continue plan. increase prozac. Medications: prozac 40mg daily vistaril 50mg q6hr prn anxiety Suboxone 8/2mg 1 tab BID SL Wellbutrin Xl 300 mg DAILY Gabapentin 600 mg TID Atarax 50 mg Q6HP PRN PO ANXIETY/AGITATION Trazodone 50 mg QHSP PRN PO INSOMNIA TIME SPENT: 30 minutes. Vital Signs Vital Signs Date Time Temp Pulse Resp B/P (MAP) Pulse Ox O2 Delivery O2 Flow Rate FiO2 01/12/19 06:45 98.2 70 12 97/53 (68) 01/06/19 02:40 98 Current Medications Current Medications Acetaminophen (Tylenol Tab) 650 mg Q6HP PRN PO HEADACHE or DISCOMFORT Last administered on 01/07/19at 20:35; Start 01/06/19 at 01:15 Al Hydrox/Mg Hydrox/Simethicone (Mylanta) 30 ml Q4HP PRN PO HEARTBURN/INDIGESTION; Start 01/06/19 at 01:15 Benzocaine (Anbesol Gel) 1 dose QID PRN MT PAIN OR DISCOMFORT Last administered on 01/10/19 09:01; Start 01/06/19 at 10:30 Buprenorphine/ Naloxone (Suboxone 8/2mg) 1 tab BID SL Last administered on 01/12/19at 09:46; Start 01/06/19 at 09:00 Bupropion HCl (Wellbutrin Xl) 300 mg DAILY PO Last administered on 01/12/19 09:16; Start 01/06/19 at 09:00 Chlorhexidine Gluconate (Peridex Oral Rinse) 15 ml TID MT Last administered on 01/12/19 09:16; Start 01/06/19 at 09:00 Doxycycline Hyclate (Vibramycin) 100 mg BID@0900,2100 PO Last administered on 01/10/19 20:20; Start 01/06/19 at 09:00; Stop 01/11/19 at 08:59; Status DC Fluoxetine HCl (PROzac) 20 mg DAILY PO Last administered on 01/12/19 09:16; Start 01/07/19 at 09:00 Gabapentin (Neurontin) 600 mg TID PO Last administered on 01/12/19 09:16; Start 01/06/19 at 09:00 Home Med (Med Rec Complete!) ASDIRECTED XX ; Start 01/06/19 at 01:45; Stop 01/06/19 at 01:45; Status DC Hydroxyzine HCl (Atarax) 50 mg Q6HP PRN PO ANXIETY/AGITATION Last administered on 01/10/19 12:58; Start 01/06/19 at 10:30 Magnesium Hydroxide (Milk Of Magnesia) 30 ml DAILYPRN PRN PO CONSTIPATION; Start 01/06/19 at 01:15 Miscellaneous (Unresolved Clarification Entry) SEE LABEL COMMENTS DAILY XX ; Start 01/12/19 at 09:00 Nicotine (Nicoderm Cq 21mg) 1 patch DAILY TD Last administered on 01/12/19 09:17; Start 01/06/19 at 01:17 Nystatin (Mycostatin) 1 dose Q4HP PRN TOP ITCHING/SWELLING Last administered on 01/11/19at 20:47; Start 01/06/19 at 10:30 Sodium Chloride ([employer] Nasal [place]) 2 spray TID NA Last administered on 01/12/19 09:16; Start 01/11/19 at 16:00 Trazodone HCl (Desyrel) 50 mg QHSP PRN PO INSOMNIA Last administered on 01/11/19 20:46; Start 01/06/19 at 01:15 Allergies Coded Allergies: Penicillins (Verified Allergy, Unknown, 01/05/19) A-FIB/CHADSVASC A-FIB History Current/History of A-Fib/PAF?: No Current Oral Anticoagulant The: No Treatment Treatment ordered: NONE Reason Anticoagulant not given: Not indicated/[id number] RAHEEM PRESTON DO Jan 12, 2019 10:09
[2019-01-12] MEDS: BACTRIM 160MG/800MG DS TAB PO SCH ×2 (13:20→20:44)
[2019-01-12 18:00] VITALS: BP 109/66
[2019-01-12] MEDS: traZODone 50 MG TAB PO PRN (20:44)
[2019-01-12] MEDS: NYSTATIN CREAM 15 GM TOP PRN (20:45)
[2019-01-12] MEDS: hydrOXYzine 50 MG TAB PO PRN (22:56)
[2019-01-13 06:44] VITALS: BP 97/53
[2019-01-13] MEDS: buPROPion **XL** TABLET 150MG (WELLBUTRIN XL) PO SCH (08:24)
[2019-01-13] MEDS: GABAPENTIN 300 MG CAP PO SCH (08:24)
[2019-01-13] MEDS: BACTRIM 160MG/800MG DS TAB PO SCH (08:24)
[2019-01-13] MEDS: NICOTINE 21MG/24HR 1 EA TRANSDERMAL TD SCH (08:24)
[2019-01-13] MEDS: SODIUM CHLORIDE NASAL 0.65% SPRAY BTL (OCEAN) SCH (08:24)
[2019-01-13] MEDS: BUPRENORPHINE/NALOXONE 8-2MG SUBLINGUAL TABLET(SUBOXONE) SL SCH (08:24)
[2019-01-13] MEDS: FLUoxetine 20 MG CAP PO SCH (08:24)
[2019-01-13] MEDS: CHLORHEXIDINE GLUCONATE 0.12 % 15ML UDC (PERIDEX ORAL RINSE) MT SCH (08:25)
[2019-01-13] MEDS ORDERED: FLUO20CA19 PO (08:49)
[2019-01-13] MEDS ORDERED: TRAZO50TA PO (08:49)
[2019-01-13] MEDS ORDERED: HYDRO50TAB PO (08:49)
[2019-01-13] MEDS ORDERED: WELLTAB40 PO (08:49)
[2019-01-13] MEDS ORDERED: GABA600T4 PO (08:49)
[2019-01-13] MEDS ORDERED: SULF1TAB93 PO (08:49)
--- NOTE | 2019-01-13 08:50 | MHDSPDOC ---
[facility] Discharge Summary Discharge Summary DATE OF ADMISSION: Jan 06, 2019 at 1:13 am DATE OF DISCHARGE: January 13, 2019 DISCHARGE DIAGNOSES: Depression Unspecified r/o Generalized Anxiety D/O r/o Major Depressive D/O recurrent severe w/o psychosis r/o substance induce depression and anxiety secondary methamphetamines Methamphetamine/cannabis use d/o History opiate use d/o REASON FOR ADMISSION: Patient is a 38 -year-old , female, with a long history of substance use who presented to ED endorsing depression and SI with plan to cut her wrists due to relapsing on methamphetamine for 1 wk with no use prior 2days admission after 4months sober off opiates. She has a history of IV drug use. Pt endorsing depression, guilt secondary to relapse, anxiety, insomnia, and poor concentration in the ED. Pt stated she was focused on being a good parent to her 2 kids she has joint custody and visitation in the ED. CONSULTANTS INVOLVED: none TREATMENT AND PROGRESS ON THE UNIT : Pt was admitted to [facility], seen for psychiatric assessment and restarted on her outpatient medications. She was also started on prozac 20mg daily for mood and anxiety. She was provided vistaril 50mg q6hr prn anxiety and trazodone 50mg qhs prn insomnia. She was treated with neosporin for her facial injuries and sinus congestion. Pt found her medications beneficial and tolerated them well. She attended groups daily during her stay. Her symptoms improved with treatment. On day of discharge she denied depression, anxiety, insomnia, SI/HI, hallucinations, delusions. She was discharged home as she awaits rehab bed placement with follow-up at Dr. An.. She felt safe for discharge. DISCHARGE ASSESSMENT: Seen and states she's feels "good" today and is looking forward on going home and seeing her kids. She hopes to get into rehab bed soon while at home. She's motivated to go. Denies SI and fleeting SI today. States anxiety greatly improved. States she's tolerating her medication well and feels they're beneficial. States she's going to groups and feels they're beneficial. She is social in the milieu and day room. Denies depression, anxiety, insomnia, SI/HI, hallucination, delusions. Feels safe to be discharged home to await rehab placement. MENTAL STATUS EXAMINATION ON DISCHARGE: General Appearance: unkempt, disheveled, appears stated age, hospital scrubs/clothing, other (improved sores on face) Build: average Demeanor: average Eye Contact: good Activity: average Behavior: cooperative Speech: clear, spontaneous, reg/rate,rhythm,volume Mood: euthymic, full Mood "good" Affect: euthymic, full Thought Process: logical/linear, intact Thought Content (Delusions): none reported, denies SI/HI, AVH Thought Content (Other): none reported, appropriate, coherent Thought Content (Aggressive): none reported Perception (Hallucinations): none reported Perception (Other): none reported Cognition (Impairment of): none reported Cognition(Intelligence Est.): average Oriented: Awake, Alert, Oriented times three Insight: good Judgment: good MEDICATIONS ON DISCHARGE: prozac 20mg daily vistaril 50mg q6hr prn anxiety Suboxone 8/2mg 1 tab BID SL prescribed by Dr. An Wellbutrin Xl 300 mg DAILY Gabapentin 600 mg TID Atarax 50 mg Q6HP PRN PO ANXIETY/AGITATION Trazodone 50 mg QHSP PRN PO INSOMNIA bactrim ds bid for 7days PLAN/FOLLOWUP ARRANGEMENTS: D/c home as pt awaits rehab bed placement with follow-up at Dr. An. The amount of time spent in the coordination of care for this patient was approximately 30 minutes. Vital Signs/I&Os Vital Signs Date Time Temp Pulse Resp B/P (MAP) Pulse Ox O2 Delivery O2 Flow Rate FiO2 01/13/19 06:44 99.3 73 14 97/53 (68) Medications Scheduled Buprenorphine HCl/Naloxone HCl (Suboxone 8 mg-2 mg Sl Film) 1 Each Film, 1 STRIP SL BID for ., (Reported) Bupropion HCl (Wellbutrin Xl) 300 Mg Tab.er.24h, 300 MG PO DAILY, (Reported) Gabapentin (Gabapentin) 600 Mg Tablet, 600 MG PO TID, (Reported) Allergies Coded Allergies: Penicillins (Verified Allergy, Unknown, 01/05/19) RAHEEM PRESTON DO Jan 13, 2019 8:50 am
--- NOTE | 2019-01-13 10:15 | MHIPN ---
DATE OF SERVICE: 01/10/2019 The patient today states "my mood is better." She says her mood is 3/10 with the closest to 10 as the most depressed. She has been sleeping a lot and better. MENTAL STATUS EXAM: She is alert and oriented times three. Eye contact is fair. Psychomotor activity is normal. There is no formal thought disorder noted. Mood is "better." Affect is full range and appropriate. She is not psychotic, suicidal or homicidal. Concentration is fair. Memory is intact. Insight and judgment fair. DIAGNOSES: 1. Unspecified depressed disorder. 2. Rule out generalized anxiety disorder. 3. Rule out major depressive disorder. 4. Rule out substance abuse, depressive disorder secondary to methamphetamine use disorder . 5. History of opiates use disorder. TREATMENT PLAN: At this point will continue to monitor the patient for continued elevations of mood and for continued resolution of suicidal ideation.
== END 2019-01-13 11:00 | disposition home or self-care (01) | DRG 751 ==
LOC: M ED 21:38 → M ED INP 01-06 01:13 → M PSY 01-06 02:42
PROVIDERS: ADMIT Psychiatry & Neurology Psychiatry; ATTEND Psychiatry & Neurology Psychiatry
DX: F33.2 Major depressive disorder, recurrent severe without psychotic features (principal); R45.851 Suicidal ideations; F41.1 Generalized anxiety disorder; F12.90 Cannabis use, unspecified, uncomplicated; F15.90 Other stimulant use, unspecified, uncomplicated; Z79.899 Other long term (current) drug therapy; Z88.0 Allergy status to penicillin

== ENCOUNTER 2019-08-23 16:14 | Emergency (ER) | payer MEDICAID, OTHER ==
[~2019-08-23] VITALS: Ht 152.4 cm; Wt 63.6 kg
[~2019-08-23 16:14] MED LIST changes: +FLUO20CA19 PO; +GABA600T4 PO; +HYDR1TAB33 PO; +SUBO8MIS SL; +SULF1TAB93 PO; +TRAZ1TAB10 PO; +WELLTAB40 PO
[2019-08-23 16:15] VITALS: BP 143/74
[2019-08-23] MEDS ORDERED: CLINDAMYCIN 150 MG CAP PO ONE (16:45)
[2019-08-23] MEDS ORDERED: ADDE20CA3 PO (16:49)
[2019-08-23] MEDS ORDERED: SERO1TAB3 PO (16:49)
[2019-08-23] MEDS ORDERED: CLEO300C2 PO (17:21)
[2019-08-23] MEDS ORDERED: IBUP-1022 PO (17:22)
--- NOTE | 2019-08-24 07:39 | REP ---
LEFT THIRD FINGER SERIES: 08/23/2019. Clinical history: Swelling about the third finger. Findings: Prominent diffuse soft tissue swelling with a sausage like configuration of the third digit of the left hand. The IP joints show no fracture or avulsion. There is no radiopaque foreign body, erosion or destructive lesion. The MCP joint was intact. The neighboring digits and their IP joints show much less soft tissue prominence probably without swelling. No fractures, avulsions, erosions or other significant bony finding. Prominent soft tissue swelling over the dorsal aspect of the hand as well. Impression: 1. Diffuse soft tissue swelling about the entire third digit and dorsal aspect of the hand. The other digits have much less swelling if any. No fracture, avulsion, erosion or other significant finding. Electronically Signed by Arturo Yadav MD 08/24/2019 07:47 A
== END 2019-08-23 17:27 | disposition home or self-care (01) ==
LOC: M ED 16:14
DX: L03.114 Cellulitis of left upper limb (principal); S67.10XA Crushing injury of unspecified finger(s), initial encounter; W23.0XXA Caught, crushed, jammed, or pinched between moving objects, initial encounter; Y92.89 Other specified places as the place of occurrence of the external cause; Z79.899 Other long term (current) drug therapy; Z79.891 Long term (current) use of opiate analgesic; Z88.0 Allergy status to penicillin; F17.210 Nicotine dependence, cigarettes, uncomplicated

== ENCOUNTER 2019-11-04 21:05 | Inpatient (IN) | payer MEDICAID ==
[~2019-11-04] VITALS: Ht 152.4 cm; Wt 64.0 kg
[~2019-11-04 21:05] MED LIST changes: +ADDE20CA3 PO; +CLEO300C2 PO; -FLUO20CA19 PO; +FLUO20CA22 PO; +IBUP-1022 PO; +SERO1TAB3 PO
[2019-11-04] MEDS ORDERED: GABA600T4 PO (21:19)
[2019-11-04] MEDS ORDERED: OXYB-54 PO (21:19)
[2019-11-04 22:05] LABS: HEMATOCRIT 35.9 % (36.0-47.0); HEMOGLOBIN 11.9 g/dl (12.0-15.5); MEAN CORPUSCULAR HEMOGLOBIN 29.3 pg (27.0-33.0); MEAN CORPUSCULAR HGB CONC 33.1 g/dl (32.0-36.5); MEAN CORPUSCULAR VOLUME 88.4 fl (80.0-96.0); PLATELET COUNT, AUTOMATED 279 10^3/uL (150-450); RED BLOOD COUNT 4.06 10^6/uL (4.00-5.40); WHITE BLOOD COUNT 7.5 10^3/uL (4.0-10.0)
[2019-11-04 22:17] LABS: AMPHETAMINES LEVEL URINE POSITIVE (NEGATIVE); BARBITURATES URINE NEGATIVE (NEGATIVE); BENZODIAZEPINES URINE POSITIVE (NEGATIVE); CANNABINOIDS URINE POSITIVE (NEGATIVE); COCAINE METABOLITE URINE POSITIVE (NEGATIVE); METHADONE URINE NEGATIVE (NEGATIVE); OPIATES URINE NEGATIVE (NEGATIVE); PHENCYCLIDINE URINE NEGATIVE (NEGATIVE)
[2019-11-04 22:30] LABS: HCG, SERUM QUALITATIVE NEGATIVE (NEGATIVE)
[2019-11-04 22:37] LABS: ACETAMINOPHEN LEVEL < 2.0 UG/ML (10.0-30.0); ALBUMIN 3.5 GM/DL (3.2-5.2); ALT/SGPT 42 U/L (12-78); BILIRUBIN,DIRECT 0.1 MG/DL (0.0-0.2); BILIRUBIN,TOTAL 0.2 MG/DL (0.2-1.0); BLOOD UREA NITROGEN 9 MG/DL (7-18); CALCIUM LEVEL 8.8 MG/DL (8.5-10.1); CARBON DIOXIDE LEVEL 29 MEQ/L (21-32); CHLORIDE LEVEL 106 MEQ/L (98-107); CREATININE FOR GFR 0.77 MG/DL (0.55-1.30); ETHYL ALCOHOL (ETHANOL) < 0.003 % (0.000-0.010); GLOMERULAR FILTRATION RATE > 60.0 (>60); GLUCOSE, FASTING 96 MG/DL (70-100); POTASSIUM SERUM 3.9 MEQ/L (3.5-5.1); SALICYLATE LEVEL 1.8 MG/DL (5.0-30.0); SODIUM LEVEL 138 MEQ/L (136-145); TOTAL PROTEIN 7.2 GM/DL (6.4-8.2)
[2019-11-05] MEDS ORDERED: QUET100T2 PO (00:49)
[2019-11-05] MEDS ORDERED: ADDE30TA PO (00:49)
[2019-11-05] MEDS ORDERED: OXYB5TAB10 PO (00:49)
[2019-11-05] MEDS ORDERED: SUBO8MIS SL (01:06)
[2019-11-05] MEDS ORDERED: GABAPENTIN 300 MG CAP PO ONE (07:30)
[2019-11-05] MEDS ORDERED: ADDERALL 5 MG TAB PO ONE (07:30)
[2019-11-05] MEDS: NICOTINE 21MG/24HR 1 EA TRANSDERMAL TD SCH (09:00)
[2019-11-05] MEDS ORDERED: oxyBUTYnin 5 MG TAB PO SCH (09:00)
[2019-11-05] MEDS: THIAMINE 100 MG TAB PO SCH ×2 (09:00→21:13)
[2019-11-05] MEDS ORDERED: BUPRENORPHINE/NALOXONE 8-2MG SUBLINGUAL TABLET(SUBOXONE) SL SCH (09:00)
[2019-11-05] MEDS ORDERED: GABAPENTIN 300 MG CAP PO SCH (09:00)
[2019-11-05] MEDS ORDERED: PILL CUTTER 1 EACH XX ONE (09:25)
[2019-11-05] MEDS ORDERED: IBUPROFEN 400 MG TAB PO PRN (11:00)
[2019-11-05] MEDS ORDERED: MOM 30ML SUSPENSION UDC PO PRN (11:00)
[2019-11-05] MEDS ORDERED: OLANZapine ORAL DISINTEGRATING TAB 5MG PO PRN (11:00)
[2019-11-05] MEDS ORDERED: LORazepam 2 MG TAB PO PRN (11:00)
[2019-11-05] MEDS ORDERED: traZODone 50 MG TAB PO PRN (11:00)
[2019-11-05 15:18] LABS: APPEARANCE, URINE HAZY (CLEAR); BACTERIA, URINE AUTO NEGATIVE (NEGATIVE); BILIRUBIN, URINE AUTO NEGATIVE (NEGATIVE); BLOOD, URINE BLOOD 3+ (NEGATIVE); COLOR, URINE YELLOW (YELLOW); GLUCOSE, URINE (UA) AUTO NEGATIVE (NEGATIVE); KETONE, URINE AUTO NEGATIVE (NEGATIVE); LEUKOCYTE ESTERASE, URINE AUTO TRACE (NEGATIVE); NITRITE, URINE AUTO NEGATIVE (NEGATIVE); PROTEIN, URINE AUTO NEGATIVE (NEGATIVE); RBC, URINE AUTO TNTC /HPF (0-3); SPECIFIC GRAVITY URINE AUTO 1.017 (1.002-1.035); SQUAMOUS EPITHELIAL CELL UR AU 0 /HPF (0-6); UROBILINOGEN, URINE AUTO 0.2 mg/dL (0.0-2.0); WBC, URINE AUTO 8 /HPF (0-3)
[2019-11-05 15:40] VITALS: BP 142/88
[2019-11-05 16:00] VITALS: BP 132/87
[2019-11-05] MEDS: GABAPENTIN 300 MG CAP PO SCH ×2 (17:33→21:14)
[2019-11-05] MEDS: MULTIVITAMINS/MINERALS THERAP 1 TAB PO SCH (17:33)
[2019-11-05] MEDS: oxyBUTYnin 5 MG TAB PO SCH ×2 (17:33→21:13)
[2019-11-05] MEDS: FOLIC ACID 1 MG TAB PO SCH (17:33)
[2019-11-05] MEDS: BUPRENORPHINE/NALOXONE 8-2MG SUBLINGUAL TABLET(SUBOXONE) SL SCH (18:17)
--- NOTE | 2019-11-05 18:33 | ECGEPIP ---
[facility] - ED Test Date: 2019-11-04 Pat Name: ANU KEYS Department: Room: - Gender: Female Commercial Installer: : [id number] Requested By: DIAN GUEVARA Order Number: [id number] Reading MD: Tray Fox Measurements Intervals [place] Rate: 89 P: 35 KS: 150 QRS: 55 QRSD: 109 T: 43 QT: 383 QTc: 466 Interpretive Statements SINUS RHYTHM POOR R WAVE PROGRESSION BENIGN EARLY REPOLARIZATION NO PRIORS FOR COMPARISON Electronically Signed on 11-05-2019 18:33:20 EST by Tray Fox
[2019-11-05 19:01] LABS: CHLAMYDIA DNA AMPLIFICATION NEGATIVE (NEGATIVE); GC DNA AMPLIFICATION NEGATIVE (NEGATIVE)
[2019-11-05] MEDS: QUEtiapine FUMARATE 100 MG TAB PO SCH (21:13)
[2019-11-06 06:33] VITALS: BP 122/76
[2019-11-06 06:35] VITALS: BP 122/76
[2019-11-06 08:29] VITALS: BP 126/80
[2019-11-06] MEDS ORDERED: BUPRENORPHINE/NALOXONE 8-2MG SUBLINGUAL TABLET(SUBOXONE) SL SCH (09:00)
[2019-11-06] MEDS: GABAPENTIN 300 MG CAP PO SCH ×3 (09:17→21:43)
[2019-11-06] MEDS: FOLIC ACID 1 MG TAB PO SCH (09:17)
[2019-11-06] MEDS: MULTIVITAMINS/MINERALS THERAP 1 TAB PO SCH (09:17)
[2019-11-06] MEDS: NICOTINE 21MG/24HR 1 EA TRANSDERMAL TD SCH (09:17)
[2019-11-06] MEDS: oxyBUTYnin 5 MG TAB PO SCH ×4 (09:18→21:43)
[2019-11-06] MEDS: THIAMINE 100 MG TAB PO SCH ×2 (09:18→21:44)
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
[2019-11-06] MEDS: BUPRENORPHINE/NALOXONE 8-2MG SUBLINGUAL TABLET(SUBOXONE) SL SCH ×2 (11:15→18:07)
[2019-11-06] MEDS ORDERED: PILL CUTTER 1 EACH XX PRN (11:30)
[2019-11-06] MEDS ORDERED: FLUoxetine 10 MG CAP PO ONE (12:00)
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
[2019-11-06] MEDS: ACETAMINOPHEN TAB 650MG DOSE (2X325MG) PO PRN (12:15)
[2019-11-06] MEDS: ADDERALL 5 MG TAB PO SCH (12:17)
[2019-11-06] MEDS: FLUTICASONE PROP 0.05% NASAL SPRAY 16 GM (FLONASE) NARES SCH (13:19)
[2019-11-06] MEDS: BACITRACIN OINT 30GM TOP PRN (16:37)
[2019-11-06 16:48] VITALS: BP 118/64
[2019-11-06] MEDS: IBUPROFEN 600 MG TAB PO PRN (18:08)
[2019-11-06] MEDS: QUEtiapine FUMARATE 100 MG TAB PO SCH (21:43)
[2019-11-06] MEDS: diphenhydrAMINE 25 MG CAP PO PRN (21:45)
[2019-11-07 06:15] VITALS: BP 119/68
[2019-11-07] MEDS: ADDERALL 5 MG TAB PO SCH ×2 (08:44→13:44)
[2019-11-07] MEDS: GABAPENTIN 300 MG CAP PO SCH ×3 (08:44→20:48)
[2019-11-07] MEDS: BACITRACIN OINT 30GM TOP PRN (08:44)
[2019-11-07] MEDS: FLUTICASONE PROP 0.05% NASAL SPRAY 16 GM (FLONASE) NARES SCH (08:44)
[2019-11-07] MEDS: oxyBUTYnin 5 MG TAB PO SCH ×4 (08:45→20:47)
[2019-11-07] MEDS: NICOTINE 21MG/24HR 1 EA TRANSDERMAL TD SCH (08:45)
[2019-11-07] MEDS: THIAMINE 100 MG TAB PO SCH ×2 (08:45→20:47)
[2019-11-07] MEDS: MULTIVITAMINS/MINERALS THERAP 1 TAB PO SCH (08:45)
[2019-11-07] MEDS: FLUoxetine 10 MG CAP PO SCH (08:45)
[2019-11-07] MEDS: IBUPROFEN 600 MG TAB PO PRN ×2 (08:45→18:41)
[2019-11-07] MEDS: FOLIC ACID 1 MG TAB PO SCH (08:45)
[2019-11-07] MEDS: BUPRENORPHINE/NALOXONE 8-2MG SUBLINGUAL TABLET(SUBOXONE) SL SCH ×2 (09:20→17:21)
[2019-11-07] MEDS: ACETAMINOPHEN TAB 650MG DOSE (2X325MG) PO PRN ×2 (11:49→20:48)
[2019-11-07] MEDS: diphenhydrAMINE 25 MG CAP PO PRN ×2 (11:49→20:47)
[2019-11-07 16:10] VITALS: BP 134/63
[2019-11-07 16:16] VITALS: BP 124/63
--- NOTE | 2019-11-07 16:59 | MHIPNPDOC ---
[facility] Progress Note Progress Note DATE OF SERVICE: 11/07/19 HISTORY: As per Dr. West: "New patient a 39-year-old woman with a notable history of drug abuse presents to [facility] after using a fair po rtion of Javier and IV drugs. She tested positive for cocaine, cannabinoids and amphetamines. The patient has a notable history of reportedly presenting depressed after relapsing. She reportedly became depressed after she left care home several months ago. She reported that she was not allowed her amphetamines in care home and reported some vague depression symptoms, notably depressed mood, however, without any physiological symptoms of eating or sleeping changes. The patient reports relapsing after some various psychosocial stressors. The patient perseverates on having "ADHD", but cannot describe any specific symptoms." VITAL SIGNS: See below. NEW TEST RESULTS: See below. CURRENT MEDICATIONS: See below. MENTAL STATUS EXAMINATION: Patient is a 39-year old female, who is drowsy, sleepy, laying in bed, with poor hygiene, disheveled. Speech: Is slurred, regular rhythm, tone and volume Thought processes including: linear, coherent Thought content: depressed/anxious thoughts, fleeting SI w/o a plan or intent. Denies HI. Description of associations: intact. Description of abnormal or psychotic thoughts: she denies TAV hallucinations, denies thought delusions Judgment: Poor Insight: Poor. Orientation: she knows she's at [facility], is oriented to self and partially to date and time. Recent and remote memory: fair Attention span and concentration: she was able to focus on the conversation. Language: adequate Fund of knowledge: average. Mood: "depressed" Affect: congruent with mood DIAGNOSES: Unspecified depressive disorder Opioid use disorder Methamphetamine, cocaine and cannabis: Recommend outpatient addiction change. ASSESSMENT: The patient is very tired, she says she feels slightly better. Reports fleeting SI w/o a plan or intent, she says she feels this way because she had been using javier and other drugs but she stopped and then, Saturday and Saturday got very depressed and that motivated her admission. She requests Orajel because she says she has toothache since one of her teeth broke. Will order Orajel. MANAGEMENT PLAN: As per Dr. West TIME SPENT: 20 minutes. Vital Signs Vital Signs Date Time Temp Pulse Resp B/P (MAP) Pulse Ox O2 Delivery O2 Flow Rate FiO2 11/07/19 16:16 87 124/63 11/07/19 16:10 98.3 16 11/05/19 15:40 98 Room Air Current Medications Current Medications Medications (Trade) Dose Ordered Sig/Gissel Route PRN Reason Start Time Stop Time Status Last Admin Dose Admin Acetaminophen (Tylenol Tab) 650 mg Q6HP PRN PO HEADACHE or DISCOMFORT 11/05/19 11:00 11/07/19 11:49 Amphetamine/ Dextroamphetamine (Adderall) 30 mg BID@0900,1300 PO 11/06/19 13:00 11/07/19 13:44 Bacitracin (Bacitracin Oint) DAILYPRN PRN TOP RASH 11/06/19 12:15 11/07/19 08:44 Buprenorphine/ Naloxone (Suboxone 8/2mg) 1 tab DAILY SL 11/06/19 09:00 11/06/19 10:22 DC Buprenorphine/ Naloxone (Suboxone 8/2mg) 1 tab DAILY@1800 SL 11/05/19 18:00 11/06/19 18:07 Buprenorphine/ Naloxone (Suboxone 8/2mg) 1.5 tab DAILY SL 11/05/19 09:00 11/06/19 07:01 DC 11/05/19 09:36 Buprenorphine/ Naloxone (Suboxone 8/2mg) 1.5 tab DAILY SL 11/06/19 09:00 11/07/19 09:20 Diphenhydramine HCl (Benadryl) 25 mg Q6HP PRN PO ANXIETY/AGITATION 11/05/19 11:00 11/07/19 11:49 Fluoxetine HCl (PROzac) 10 mg DAILY PO 11/07/19 09:00 11/07/19 08:45 Fluticasone Propionate (Flonase 0.05% Nasal [place]) 2 spray DAILY NARES 11/06/19 09:00 11/07/19 08:44 Folic Acid (Folic Acid) 1 mg DAILY PO 11/05/19 09:00 11/07/19 08:45 Gabapentin (Neurontin) 600 mg TID PO 11/05/19 09:00 11/05/19 12:31 DC Gabapentin (Neurontin) 600 mg TID PO 11/05/19 16:00 11/07/19 15:49 Home Med (Med Rec Complete!) ASDIRECTED XX 11/05/19 01:15 11/05/19 01:12 DC Ibuprofen (Advil) 400 mg Q6HP PRN PO PAIN 11/05/19 11:00 11/06/19 12:15 DC 11/06/19 09:18 Ibuprofen (Advil) 600 mg Q6HP PRN PO MODERATE PAIN (PS 5-7) 11/06/19 12:15 11/07/19 08:45 Lorazepam (Ativan) 2 mg ASDIRECTED PRN PO SEE PROTOCOL 11/05/19 11:00 11/06/19 09:18 Magnesium Hydroxide (Milk Of Magnesia) 30 ml DAILYPRN PRN PO CONSTIPATION 11/05/19 11:00 Miscellaneous (Unresolved Clarification Entry) SEE LABEL COMMENTS DAILY XX 11/05/19 09:00 11/06/19 07:01 DC Miscellaneous (Unresolved Clarification Entry) SEE LABEL COMMENTS DAILY XX 11/05/19 09:00 11/06/19 10:50 DC Multivitamins (Theragram-M) 1 tab DAILY PO 11/05/19 09:00 11/07/19 08:45 Nicotine (Nicoderm Cq 21mg) 1 patch DAILY TD 11/05/19 09:00 11/07/19 08:45 Olanzapine (ZyPREXA ZYDIS) 5 mg Q4HP PRN PO AGITATION 11/05/19 11:00 Oxybutynin Chloride (Ditropan) 5 mg QID PO 11/05/19 09:00 11/05/19 16:55 DC 11/05/19 09:37 Oxybutynin Chloride (Ditropan) 5 mg QID PO 11/05/19 17:00 11/07/19 13:25 Quetiapine Fumarate (SEROquel) 100 mg QHS PO 11/05/19 21:00 11/06/19 21:43 Thiamine HCl (Thiamine HCl) 100 mg BID PO 11/05/19 09:00 11/08/19 08:59 11/07/19 08:45 Trazodone HCl (Desyrel) 50 mg QHSP PRN PO INSOMNIA 11/05/19 11:00 Allergies Coded Allergies: Penicillins (Verified Allergy, Unknown, 01/05/19) LEEANNE AGUILAR MD Nov 07, 2019 16:49
[2019-11-07] MEDS: QUEtiapine FUMARATE 100 MG TAB PO SCH (20:48)
[2019-11-07] MEDS: BENZOCAINE 10% 9GM TUBE (ANBESOL) TOP SCH (20:50)
[2019-11-08 06:27] VITALS: BP 131/64
[2019-11-08 06:34] VITALS: BP 131/64
[2019-11-08 08:16] VITALS: BP_SYST 131; BP_SYST 132; BP_DIAS 64; BP_DIAS 69
[2019-11-08] MEDS: oxyBUTYnin 5 MG TAB PO SCH ×4 (08:58→20:17)
[2019-11-08] MEDS: GABAPENTIN 300 MG CAP PO SCH ×3 (09:04→20:17)
[2019-11-08] MEDS: FOLIC ACID 1 MG TAB PO SCH (09:04)
[2019-11-08] MEDS: FLUoxetine 10 MG CAP PO SCH (09:04)
[2019-11-08] MEDS: BENZOCAINE 10% 9GM TUBE (ANBESOL) TOP SCH ×2 (09:04→20:18)
[2019-11-08] MEDS: MULTIVITAMINS/MINERALS THERAP 1 TAB PO SCH (09:04)
[2019-11-08] MEDS: NICOTINE 21MG/24HR 1 EA TRANSDERMAL TD SCH (09:05)
[2019-11-08] MEDS: FLUTICASONE PROP 0.05% NASAL SPRAY 16 GM (FLONASE) NARES SCH (09:06)
[2019-11-08] MEDS: IBUPROFEN 600 MG TAB PO PRN ×2 (09:06→13:48)
[2019-11-08] MEDS: ADDERALL 5 MG TAB PO SCH ×2 (09:06→13:49)
[2019-11-08] MEDS: BUPRENORPHINE/NALOXONE 8-2MG SUBLINGUAL TABLET(SUBOXONE) SL SCH ×2 (09:07→18:10)
--- NOTE | 2019-11-08 13:57 | MHIPNPDOC ---
[facility] Progress Note Progress Note DATE OF SERVICE: 11/08/19 HISTORY: As per Dr. West: "New patient a 39-year-old woman with a notable history of drug abuse presents to [facility] after using a fair po rtion of Maite and IV drugs. She tested positive for cocaine, cannabinoids and amphetamines. The patient has a notable history of reportedly presenting depressed after relapsing. She reportedly became depressed after she left assisted several months ago. She reported that she was not allowed her amphetamines in assisted and reported some vague depression symptoms, notably depressed mood, however, without any physiological symptoms of eating or sleeping changes. The patient reports relapsing after some various psychosocial stressors. The patient perseverates on having "ADHD", but cannot describe any specific symptoms." VITAL SIGNS: See below. NEW TEST RESULTS: See below. CURRENT MEDICATIONS: See below. MENTAL STATUS EXAMINATION: Patient is a 39-year old female, who still looks tired, wearing hospital clothes,disheveled Speech: not slurred today, more spontaneous, more fluent. Normal tone, rhythm and volume Thought processes including: linear, coherent Thought content: She denies SI/HI, denies thought delusions but still reports anxious/depressed thoughts Description of associations: intact. Description of abnormal or psychotic thoughts: she denies TAV hallucinations, denies thought delusions Judgment: Poor Insight: Poor. Orientation: x 3 Recent and remote memory: fair Attention span and concentration: fair Language: adequate Fund of knowledge: average. Mood: "a little better" Affect: congruent with mood DIAGNOSES: Unspecified depressive disorder Opioid use disorder Methamphetamine, cocaine and cannabis: Recommend outpatient addiction change. ASSESSMENT: The patient has been more active today, she has dilma seen in the lounge, walking in the Hallways, she ate. She is less tired than yesterday. she seems to be responding to treatment, will need addictions treatment upon discharge. MANAGEMENT PLAN: As per Dr. West TIME SPENT: 20 minutes. Vital Signs Vital Signs Date Time Temp Pulse Resp B/P (MAP) Pulse Ox O2 Delivery O2 Flow Rate FiO2 11/08/19 08:16 69 131/64 11/08/19 06:34 98.0 18 11/05/19 15:40 98 Room Air Current Medications Current Medications Medications (Trade) Dose Ordered Sig/Gissel Route PRN Reason Start Time Stop Time Status Last Admin Dose Admin Acetaminophen (Tylenol Tab) 650 mg Q6HP PRN PO HEADACHE or DISCOMFORT 11/05/19 11:00 11/07/19 20:48 Amphetamine/ Dextroamphetamine (Adderall) 30 mg BID@0900,1300 PO 11/06/19 13:00 11/08/19 13:49 Bacitracin (Bacitracin Oint) DAILYPRN PRN TOP RASH 11/06/19 12:15 11/07/19 08:44 Benzocaine (Anbesol Gel) 1 dose BID TOP 11/07/19 21:00 11/08/19 09:04 Buprenorphine/ Naloxone (Suboxone 8/2mg) 1 tab DAILY SL 11/06/19 09:00 11/06/19 10:22 DC Buprenorphine/ Naloxone (Suboxone 8/2mg) 1 tab DAILY@1800 SL 11/05/19 18:00 11/07/19 17:21 Buprenorphine/ Naloxone (Suboxone 8/2mg) 1.5 tab DAILY SL 11/05/19 09:00 11/06/19 07:01 DC 11/05/19 09:36 Buprenorphine/ Naloxone (Suboxone 8/2mg) 1.5 tab DAILY SL 11/06/19 09:00 11/08/19 09:07 Diphenhydramine HCl (Benadryl) 25 mg Q6HP PRN PO ANXIETY/AGITATION 11/05/19 11:00 11/07/19 20:47 Fluoxetine HCl (PROzac) 10 mg DAILY PO 11/07/19 09:00 11/08/19 09:04 Fluticasone Propionate (Flonase 0.05% Nasal [place]) 2 spray DAILY NARES 11/06/19 09:00 11/08/19 09:06 Folic Acid (Folic Acid) 1 mg DAILY PO 11/05/19 09:00 11/08/19 09:04 Gabapentin (Neurontin) 600 mg TID PO 11/05/19 09:00 11/05/19 12:31 DC Gabapentin (Neurontin) 600 mg TID PO 11/05/19 16:00 11/08/19 09:04 Home Med (Med Rec Complete!) ASDIRECTED XX 11/05/19 01:15 11/05/19 01:12 DC Ibuprofen (Advil) 400 mg Q6HP PRN PO PAIN 11/05/19 11:00 11/06/19 12:15 DC 11/06/19 09:18 Ibuprofen (Advil) 600 mg Q6HP PRN PO MODERATE PAIN (PS 5-7) 11/06/19 12:15 11/08/19 13:48 Lorazepam (Ativan) 2 mg ASDIRECTED PRN PO SEE PROTOCOL 11/05/19 11:00 11/06/19 09:18 Magnesium Hydroxide (Milk Of Magnesia) 30 ml DAILYPRN PRN PO CONSTIPATION 11/05/19 11:00 Miscellaneous (Unresolved Clarification Entry) SEE LABEL COMMENTS DAILY XX 11/05/19 09:00 11/06/19 07:01 DC Miscellaneous (Unresolved Clarification Entry) SEE LABEL COMMENTS DAILY XX 11/05/19 09:00 11/06/19 10:50 DC Multivitamins (Theragram-M) 1 tab DAILY PO 11/05/19 09:00 11/08/19 09:04 Nicotine (Nicoderm Cq 21mg) 1 patch DAILY TD 11/05/19 09:00 11/08/19 09:05 Olanzapine (ZyPREXA ZYDIS) 5 mg Q4HP PRN PO AGITATION 11/05/19 11:00 Oxybutynin Chloride (Ditropan) 5 mg QID PO 11/05/19 09:00 11/05/19 16:55 DC 11/05/19 09:37 Oxybutynin Chloride (Ditropan) 5 mg QID PO 11/05/19 17:00 11/07/19 20:47 Quetiapine Fumarate (SEROquel) 100 mg QHS PO 11/05/19 21:00 11/07/19 20:48 Thiamine HCl (Thiamine HCl) 100 mg BID PO 11/05/19 09:00 11/08/19 08:59 DC 11/07/19 20:47 Trazodone HCl (Desyrel) 50 mg QHSP PRN PO INSOMNIA 11/05/19 11:00 Allergies Coded Allergies: Penicillins (Verified Allergy, Unknown, 01/05/19) LEEANNE AGUILAR MD Nov 08, 2019 13:57
[2019-11-08 16:00] VITALS: BP 110/68
[2019-11-08] MEDS: CIPROFLOXACIN 250 MG TAB PO SCH (18:10)
[2019-11-08] MEDS: ACETAMINOPHEN TAB 650MG DOSE (2X325MG) PO PRN (18:20)
[2019-11-08] MEDS: QUEtiapine FUMARATE 100 MG TAB PO SCH (20:17)
[2019-11-08] MEDS: BACITRACIN OINT 30GM TOP PRN (20:18)
[2019-11-08] MEDS: diphenhydrAMINE 25 MG CAP PO PRN (20:18)
[2019-11-09] MEDS: CIPROFLOXACIN 250 MG TAB PO SCH (05:32)
[2019-11-09 06:49] VITALS: BP 129/62
--- NOTE | 2019-11-09 08:42 | MHDSPDOC ---
[facility] Discharge Summary Discharge Summary DATE OF ADMISSION: Nov 05, 2019 at 10:53 DATE OF DISCHARGE: 11/09/19 Karlene Wade Discharge Karlene Wade Select Gender MRN: N/A Date of : MM/DD/YYYY Date of Service: 11/09/2019 Diagnoses Unspecified depressive disorder Likely substance-induced Methamphetamine use disorder, severe Cocaine use disorder, severe Opioid use disorder, severe on maintenance Cannabis use disorder, severe Highly concerning for malingering History of Present Illness New patient a 39-year-old woman with a notable history of drug abuse presents to [facility] after using a fair portion of Javier and IV drugs. She tested positive for cocaine, cannabinoids and amphetamines. The patient has a notable history of reportedly presenting depressed after relapsing. She reportedly became depressed after she left half-way several months ago. She reported that she was not allowed her amphetamines in half-way and reported some vague depression symptoms, notably depressed mood, however, without any physiological symptoms of eating or sleeping changes. The patient reports relap sing after some various psychosocial stressors. The patient perseverates on having "ADHD", but cannot describe any specific symptoms. Consultants Involved Hospitalist/PCP screening Treatment and Progress On The Unit The patient was admitted to the inpatient mental health unit. Generally during her stay, she report depression, she was treated with Prozac after discussion of the risks and combination with Adderall and Suboxone. Discussed with the patient the nature of addiction treatment as well as the concerning co-prescription of multiple controlled substances. However, the patient was generally unconcerned with this. She was in behavioral control throughout her stay and generally denied suicidal or homicidal ideation the last several days prior to her di scharge. She had no major behavioral outbursts, and went to groups relatively frequently. Patient was very insistent about having her Adderall and appeared holding on amenable to the idea of discontinuing it. Discharge Assessment 39-year-old woman with a history of significant substance use presents after relapsing on javier and other IV drugs, she reports feeling depressed likely in a state of withdrawal from these multiple substances. She has multiple providers that probably complicates her care. However, she participates sufficiently well in her programming to take advantage of some of her depression treatment. The patient at the time of discharge did not meet criteria for involuntary admission/extension due to having a normal mental status exam, fair insight into the situation, They are engaged in the discharge process, as well as being friendly and amenable in behavioral control and havent been engaging in any observed concerning behavior or ideation recently. They decline voluntary extension/admission at this time and must be discharged in good lilli, as Im unable to make a case for holding the patient against their will. They may have historical risk factors of admissions and other interactions with psychiatry however, those are not modifiable from a clinical perspective. The patient will need to be discharged in good lilli. Mental Status Examination General: Well dressed with good hygiene Speech: Spontaneous and fluid Thought processes: Linear and logical MSK: Smooth and coordinated gait, no signs of tremors or involuntary orofacial movements Thought content: Future orientated Abstract reasoning, and computation: Intact Description of associations: Intact Description of abnormal or psychotic thoughts: Denies any suicidal or homicidal ideation. Denies any auditory or visual hallucinations. Does not appear to be responding to internal stimuli. Does not appear to be endorsing any bizarre or paranoid ideation. Judgment: fair Insight: fair Orientation: Alert and orientated 3 Cognition: Grossly normal Recent and remote memory: Intact Attention span and concentration: Intact Fund of knowledge: Adequate Mood: "okay" Affect: Euthymic with a full range Follow Up The social work team worked during the predischarge meeting in order to evaluate for further issues of lethality address them fully before discharge. They worked on safety planning with the patient's family members in order to ensure that the patient will have a safe and effective discharge. Time Spent The amount of time spent in the coordination of care for this patient was approximately 60 minutes. Vital Signs/I&Os Vital Signs Date Time Temp Pulse Resp B/P (MAP) Pulse Ox O2 Delivery O2 Flow Rate FiO2 11/09/19 06:49 98.2 65 18 129/62 (84) Room Air 11/05/19 15:40 98 Laboratory Data Microbiology Microbiology 11/08/19 Urine Culture, Received Pending Medications Scheduled Buprenorphine HCl/Naloxone HCl (Suboxone 8 mg-2 mg Sl Film) 1 Each Film, 1.5 STRIP SL DAILY, (Reported) Buprenorphine HCl/Naloxone HCl (Suboxone 8 mg-2 mg Sl Film) 1 Each Film, 1 STRIP SL QHS, (Reported) Ciprofloxacin HCl (Cipro) 250 Mg Tablet, 250 MG PO BID@ for uti for 5 Days, #10 Dextroamphetamine/Amphetamine (Adderall 30 mg Tablet) 30 Mg Tablet, 30 MG PO BID, (Reported) 2ND DOSE AT 1300 Fluoxetine Hcl (Fluoxetine HCl) 20 Mg Capsule, 20 MG PO DAILY for mood for 7 Days, #7 Gabapentin (Gabapentin) 600 Mg Tablet, 600 MG PO TID, (Reported) Nicotine (Nicotine Patch) 21 Mg Patch.td24, 1 PATCH TD DAILY for tobacco for 30 Days, #30 Oxybutynin Chloride (Oxybutynin Chloride) 5 Mg Tablet, 5 MG PO QID, (Reported) Quetiapine Fumarate (Quetiapine Fumarate) 100 Mg Tablet, 100 MG PO QHS, (Reported) Allergies Coded Allergies: Penicillins (Verified Allergy, Unknown, 01/05/19) ERIC FERRARO DO Nov 09, 2019 08:42
[2019-11-09] MEDS: ACETAMINOPHEN TAB 650MG DOSE (2X325MG) PO PRN (08:44)
[2019-11-09] MEDS: GABAPENTIN 300 MG CAP PO SCH (08:45)
[2019-11-09] MEDS: oxyBUTYnin 5 MG TAB PO SCH (08:45)
[2019-11-09] MEDS: FOLIC ACID 1 MG TAB PO SCH (08:45)
[2019-11-09] MEDS: ADDERALL 5 MG TAB PO SCH (08:45)
[2019-11-09] MEDS: MULTIVITAMINS/MINERALS THERAP 1 TAB PO SCH (08:45)
[2019-11-09] MEDS: BUPRENORPHINE/NALOXONE 8-2MG SUBLINGUAL TABLET(SUBOXONE) SL SCH (08:45)
[2019-11-09] MEDS: BENZOCAINE 10% 9GM TUBE (ANBESOL) TOP SCH (08:46)
[2019-11-09] MEDS: FLUTICASONE PROP 0.05% NASAL SPRAY 16 GM (FLONASE) NARES SCH (08:46)
[2019-11-09] MEDS: NICOTINE 21MG/24HR 1 EA TRANSDERMAL TD SCH (08:49)
[2019-11-09] MEDS ORDERED: FLUoxetine 20 MG CAP PO SCH (09:00)
[2019-11-09] MEDS ORDERED: CIPR-250 PO (09:21)
[2019-11-09] MEDS ORDERED: NICO21PAT TD (09:21)
[2019-11-09] MEDS ORDERED: FLUO20CA22 PO (09:21)
== END 2019-11-09 12:07 | disposition home or self-care (01) | DRG 754 ==
LOC: M ED 21:05 → M ED INP 11-05 10:53 → M PSY 11-05 15:25
PROVIDERS: ADMIT Psychiatry & Neurology Addiction Medicine; ATTEND Psychiatry & Neurology Addiction Medicine
DX: F32.9 Major depressive disorder, single episode, unspecified (principal); G62.9 Polyneuropathy, unspecified; R45.851 Suicidal ideations; F11.90 Opioid use, unspecified, uncomplicated; F12.90 Cannabis use, unspecified, uncomplicated; F15.90 Other stimulant use, unspecified, uncomplicated; Z76.5 Malingerer [conscious simulation]; Z79.899 Other long term (current) drug therapy; Z88.0 Allergy status to penicillin; B18.2 Chronic viral hepatitis C

== ENCOUNTER → 2020-05-03 | Emergency (ER) | payer MEDICAID, OTHER ==
[~2020-05-03] MED LIST changes: +ADDE30TA PO; +CIPR-250 PO; +NICO21PAT TD; +OXYB-54 PO; +OXYB5TAB10 PO; +QUET100T2 PO
== END | disposition home or self-care (01) ==
LOC: M ED 11:41
DX: J20.9 Acute bronchitis, unspecified (principal); J01.90 Acute sinusitis, unspecified; J06.9 Acute upper respiratory infection, unspecified; F17.200 Nicotine dependence, unspecified, uncomplicated; F11.20 Opioid dependence, uncomplicated; Z79.899 Other long term (current) drug therapy

== ENCOUNTER 2020-12-24 11:41 | Emergency (ER) | payer OTHER ==
[~2020-12-24] VITALS: Ht 152.4 cm; Wt 56.8 kg
[2020-12-24 11:41] VITALS: BP 152/67
[2020-12-24] MEDS ORDERED: WELLTAB40 PO (11:59)
--- NOTE | 2020-12-24 12:44 | REP ---
INDICATION: TRAUMA COMPARISON: 12/21/2012 left ankle. TECHNIQUE: Four views bilateral ankles. FINDINGS: Metallic plate and multiple metallic screws are again seen in the distal left fibula. There is an old healed fracture of the distal fibula. One of the screws which extended into the tibia has been removed. There is mild bilateral soft tissue swelling. The ankle mortise is anatomic bilaterally. No acute fracture or dislocation is seen. IMPRESSION: No acute fracture or dislocation. Mild bilateral soft tissue swelling. <Electronically signed by Juancho Molina > 12/24/20 1831
[2020-12-24] MEDS ORDERED: IBUPROFEN 800 MG TAB PO ONE (13:00)
[2020-12-24 13:23] LABS: BASO % 0.2 % (0.0-1.0); EOS # 0.1 10^3/uL (0.0-0.5); EOS % 0.2 % (0.0-3.0); HEMATOCRIT 30.6 % (36.0-47.0); HEMOGLOBIN 10.1 g/dl (12.0-15.5); LYMPH # 0.6 10^3/uL (1.5-5.0); LYMPH % 2.5 % (24.0-44.0); MEAN CORPUSCULAR HEMOGLOBIN 28.8 pg (27.0-33.0); MEAN CORPUSCULAR VOLUME 87.2 fl (80.0-96.0); MONO # 1.6 10^3/uL (0.0-0.8); MONO % 6.9 % (2.0-8.0); NEUTROPHILS % 89.3 % (36.0-66.0); PLATELET COUNT, AUTOMATED 223 10^3/uL (150-450); RED BLOOD COUNT 3.51 10^6/uL (4.00-5.40)
[2020-12-24 13:44] LABS: WHITE BLOOD COUNT 22.5 10^3/uL (4.0-10.0)
[2020-12-24 13:49] LABS: ERYTHROCYTE SEDIMENTATION RATE 56 mm/hr (0-20)
[2020-12-24 13:58] LABS: ALBUMIN 3.6 GM/DL (3.2-5.2); BILIRUBIN,DIRECT 0.2 MG/DL (0.0-0.2); BILIRUBIN,TOTAL 0.6 MG/DL (0.2-1.0); C REACTIVE PROTEIN QUANTITATIV 13.1 MG/DL (0.00-0.30); CALCIUM LEVEL 8.9 MG/DL (8.5-10.1); CREATININE FOR GFR 1.31 MG/DL (0.55-1.30); GLOMERULAR FILTRATION RATE 48.4 (>60); POTASSIUM SERUM 4.5 MEQ/L (3.5-5.1); TOTAL PROTEIN 7.8 GM/DL (6.4-8.2)
[2020-12-24] MEDS ORDERED: BACTRIM 160MG/800MG DS TAB PO ONE (14:05)
[2020-12-24] MEDS ORDERED: BACT800T5 PO (14:08)
[2020-12-25] MEDS ORDERED: ADDE30TA PO (03:02)
[2020-12-25] MEDS ORDERED: QUET200T2 PO (03:04)
[2020-12-25] MEDS ORDERED: FLUO20CA22 PO (03:08)
[2020-12-25] MEDS ORDERED: SULF1TAB93 PO (03:08)
== END 2020-12-24 14:29 | disposition left against medical advice (07) ==
LOC: M ED 11:41
DX: L03.116 Cellulitis of left lower limb (principal); F19.90 Other psychoactive substance use, unspecified, uncomplicated; A41.9 Sepsis, unspecified organism; N17.9 Acute kidney failure, unspecified; Z53.29 Procedure and treatment not carried out because of patient's decision for other reasons; Z79.899 Other long term (current) drug therapy; Z88.0 Allergy status to penicillin

== ENCOUNTER 2020-12-24 20:40 | Inpatient (IN) | payer OTHER ==
[~2020-12-24] VITALS: Ht 160 cm; Wt 58.6 kg
[~2020-12-24 20:40] MED LIST changes: +BACT800T5 PO
[2020-12-24 21:25] LABS: HEMATOCRIT 31.5 % (36.0-47.0); HEMOGLOBIN 10.1 g/dl (12.0-15.5); MEAN CORPUSCULAR HEMOGLOBIN 28.3 pg (27.0-33.0); MEAN CORPUSCULAR HGB CONC 32.1 g/dl (32.0-36.5); MEAN CORPUSCULAR VOLUME 88.2 fl (80.0-96.0); PLATELET COUNT, AUTOMATED 159 10^3/uL (150-450); RED BLOOD COUNT 3.57 10^6/uL (4.00-5.40); WHITE BLOOD COUNT 22.3 10^3/uL (4.0-10.0)
[2020-12-24] MEDS ORDERED: NS 1,000 ML IV ONE (21:30)
[2020-12-24] MEDS ORDERED: cefTRIAXone SOD 2 GM in D5W MINI-BAG PLUS 50 ML IV ONE (21:30)
[2020-12-24 22:07] LABS: ALBUMIN 3.5 GM/DL (3.2-5.2); BILIRUBIN,TOTAL 0.6 MG/DL (0.2-1.0); CALCIUM LEVEL 8.9 MG/DL (8.5-10.1); CREATININE FOR GFR 1.57 MG/DL (0.55-1.30); GLOMERULAR FILTRATION RATE 39.3 (>60); POTASSIUM SERUM 4.9 MEQ/L (3.5-5.1); TOTAL PROTEIN 7.7 GM/DL (6.4-8.2)
[2020-12-25] MEDS ORDERED: KETOROLAC 30 MG/ML 1ML VIAL IV ONE ×2 (02:50→14:00)
[2020-12-25] MEDS ORDERED: GABAPENTIN 300 MG CAP PO ONE (02:50)
[2020-12-25] MEDS ORDERED: QUEtiapine FUMARATE 100 MG TAB PO ONE (02:50)
[2020-12-25] MEDS ORDERED: ADDE30TA PO (03:02)
[2020-12-25] MEDS ORDERED: QUET200T2 PO (03:04)
[2020-12-25] MEDS ORDERED: SULF1TAB93 PO (03:08)
[2020-12-25] MEDS ORDERED: FLUO20CA22 PO (03:08)
[2020-12-25] MEDS ORDERED: MAALOX 30 ML SUSP *UDC PO PRN (03:15)
[2020-12-25] MEDS ORDERED: MOM 30ML SUSPENSION UDC PO PRN (03:15)
[2020-12-25] MEDS ORDERED: KETAMINE HCL 200 MG/20 ML VIAL IV ONE (03:25)
[2020-12-25] MEDS ORDERED: NS 1,000 ML IV SCH (03:30)
[2020-12-25 03:35] LABS: AMPHETAMINES LEVEL URINE NEGATIVE (NEGATIVE); BARBITURATES URINE NEGATIVE (NEGATIVE); BENZODIAZEPINES URINE NEGATIVE (NEGATIVE); CANNABINOIDS URINE NEGATIVE (NEGATIVE); COCAINE METABOLITE URINE NEGATIVE (NEGATIVE); METHADONE URINE NEGATIVE (NEGATIVE); OPIATES URINE POSITIVE (NEGATIVE); PHENCYCLIDINE URINE NEGATIVE (NEGATIVE)
[2020-12-25] MEDS ORDERED: VANCOMYCIN HCL 1,000 MG, VIAL MATE ADAPTER 1 EACH in NS 250 ML IV ONE (03:35)
--- NOTE | 2020-12-25 03:51 | HPEPDOC ---
[facility] Medical History & Physical Date of Admission Dec 25, 2020 Date of Service: Dec 25, 2020 History and Physical CHIEF COMPLAINT: Drug overdose HISTORY OF PRESENT ILLNESS: 40-year-old female was just here in the ED and left AMA. Most of the history was obtained from ED staff as patient is to agitated and irritable to answer my questions. I'm told that she left AMA from the ED went home used heroin and was found unconscious by her dad who called EMS who brought her to emergency department where she was somnolent and slowly regained consciousness before becoming extremely agitated. While she was in the hospital a few hours ago blood cultures were drawn and prelim results are positive for gram-positive cocci in pairs and chains. Patient is a known IV drug abuser uses heroin the report is that she went home and used heroin and overdosed on it. Attempts to redirect the patient to obtain more history are very difficult she will not answer most of my questions she does complain of right ankle pain this seems to be the majority of her focus she tells me that she was playing on a trampoline and fell off and r olled on her ankle review of x-rays done yesterday reveal no fracture or dislocation. Also noted lacerations on her right hand asked about though she tells me she injured her hand on broken glass about a week ago. She does endorse me that she has a history of hepatitis C that's been untreated. She will not endorsed to me details of the events that happened in the last 24 hours. She will not tell me if she has suicidal ideations or her use of heroin was an attempt. She does deny to me that she has fevers. In the emergency department patient was given ketamine for pain in an attempt to avoid the use of narcotics. Patient will be admitted to PCU with sepsis and bacteremia, drug overdose with sitter PAST MEDICAL/SURGICAL HISTORY: From chart review IV drug abuse including heroin Depression Hepatitis C Left ankle fracture surgery SOCIAL HISTORY: Unable to obtain an accurate social history from the patient. She will not tell me what can of drugs she uses she doesn't believe she smokes or uses alcohol. FAMILY HISTORY: Unable to obtain from patient due to her agitation ALLERGIES: Please see below. REVIEW OF SYSTEMS: Unable to obtain complete review of systems patient not cooperating with questioning yelling and screaming. HOME MEDICATIONS: Please see below. PHYSICAL EXAMINATION: The exam is limited and not compressive because examining patient was difficult she would not allow me to fully examine her Constitutional: Initially somnolent, now awake but agitated screaming and yel ling not easily directable. Easily irritable. Appears angry frustrated yelling at staff. ENT: Sclera is not icteric Respiratory: Lungs diminished breath sounds bilaterally. No respiratory distress. On 2 L of oxygen by nasal cannula Cardiovascular: Normal rate and rhythm she was talking during the exam and I couldn't appreciate her heart well enough to appreciate murmurs Gastrointestinal: Abdomen is soft, non distended, non tender Musculoskeletal: Multiple lacerations involving the right hand which she tells me is from broken glass a week ago. Similar injury under her chin. She would not allow me to examine her legs she says they're too painful inspection reveals her right leg the ankle appears swollen and she is unable to move it with good range of motion due to pain. Neurologic: No focal neurological deficit were observed. Mental Status: Agitated screaming selectively answering questions Psych: Will not tell me if she feels depressed or if she tried to overdose due to suicidal attempt Skin: left leg has multiple small areas of erythema around site of injection LABORATORY DATA: See below. IMAGING: See chart MICROBIOLOGY: Please see below. ASSESSMENT/PLAN 40 female history of IVDA admitted with drug overdose likely heroin found to have sepsis with gram-positive bacteremia as well as lower extremity cellulitis, ankle sprain, and SHAVON. # Heroin overdose: hx of IVDA with heroin. Initially unresponsive in ED. attempting to collect urine tox screen. Avoid narcotics and gabapentin for now. Unknown if she had suicide attempt. Sitter. She does have a history of depressi on and inpatient [facility] health unit admission. Consider psych consult in the morning. # Sepsis with gram positive bacteremia: Leukocytosis 22 on admit. Fu Echo. Ordered repeat BCx. IVFs NS. IV Vanc and meropenem (allergic to PCN). La normalized with fluids. # SHAVON: likely related to her drug overdose/dehyration. Fu FeNa. IVFs. Avoid nephrotoxins. # Suspected cellulitis right ankle: near injection sites some erythema, should be covered with IV vancomycin. # Right ankle pain: says fell off of trampoline. xray 12/24 4 view bilateral ankle no fracture or dislocation. Pain control. PT/OT. # Right leg pain and mild swelling: follow up duplex US right lower extremity # Multiple lacerations: Involving right hand and chin. Tells me from broken glass injury. wound care with PT ordered. # Hyponatremia: Continue to monitor BMP, IVFs with NS. # history of Hepatitis C: follow up on hepatitis panel. Not candidate for treatment with her current use of IV drugs. Follow up with PCP. # DVT prophylaxis: Heparin A Yousef Hospitalist Vital Signs Vital Signs Date Time Temp Pulse Resp B/P (MAP) Pulse Ox O2 Delivery O2 Flow Rate FiO2 12/25/20 02:28 93 14 99 Nasal Cannula 2.0 12/25/20 02:15 120/66 (84) 12/24/20 20:43 97.5 Laboratory Data Labs 24H Laboratory Tests 2 12/24/20 21:01: Bedside Glucose (Misc Panel) 111H 12/24/20 21:12: Nucleated Red Blood Cells % (auto) 0.0, Anion Gap 8, Glomerular Filtration Rate 39.3L, Lactic Acid Level 2.2*H, Calcium Level 8.9, Total Bilirubin 0.6, Aspartate Amino Transf (AST/SGOT) 60H, Alanine Aminotransferase (ALT/SGPT) 36, Alkaline Phosphatase 66, Total Protein 7.7, Albumin 3.5, Albumin/Globulin Ratio 0.8L 12/25/20 02:09: Lactic Acid Followup at 4 Hours 1.3 12/25/20 02:54: 12/25/20 03:00: CBC/BMP Laboratory Tests 12/24/20 21:12 Home Medications Scheduled Buprenorphine HCl/Naloxone HCl (Suboxone 8 mg-2 mg Sl Film) 1 Each Film, 2.5 STR IP SL DAILY Bupropion HCl (Wellbutrin Xl) 300 Mg Tab.er.24h, 300 MG PO QAM Dextroamphetamine/Amphetamine (Adderall 30 mg Tablet) 30 Mg Tablet, 30 MG PO BID QAM AND 1PM Fluoxetine Hcl (Fluoxetine HCl) 20 Mg Capsule, 20 MG PO DAILY Gabapentin (Gabapentin) 600 Mg Tablet, 600 MG PO TID Oxybutynin Chloride (Oxybutynin Chloride) 5 Mg Tablet, 5 MG PO TID Quetiapine Fumarate (Quetiapine Fumarate) 200 Mg Tablet, 200 MG PO QHS Sulfamethoxazole/Trimethoprim (Sulfamethoxazole-Tmp Ds Tablet) 1 Each Tablet, 1 TAB PO BID STARTED 12/20/20 X 14 DAYS Allergies Coded Allergies: Penicillins (Verified Allergy, Unknown, 01/05/19) A-FIB/CHADSVASC A-FIB History Current/History of A-Fib/PAF?: No YOUSEF,ALEX Julian MD Dec 25, 2020 03:36
[2020-12-25 03:52] LABS: CREATININE,RANDOM URINE 42.4 MG/DL; SODIUM,RANDOM URINE < 10 MEQ/L
[2020-12-25 03:56] LABS: RSV AMPLIFICATION NEGATIVE (NEGATIVE)
[2020-12-25 04:44] VITALS: BP 121/60
[2020-12-25 05:00] VITALS: BP 118/86
[2020-12-25] MEDS: ACETAMINOPHEN TAB 650MG DOSE (2X325MG) PO PRN ×2 (05:01→11:44)
[2020-12-25] MEDS ORDERED: MEROPENEM INJ 1 GM in IV 1 EA IV SCH (06:00)
[2020-12-25] MEDS ORDERED: HEPARIN SOD (PORCINE) 5000UNITS/ML 1ML VIAL/SYRINGE SC SCH (06:00)
[2020-12-25 08:00] VITALS: BP 107/60
[2020-12-25 08:03] LABS: HEMATOCRIT 32.6 % (36.0-47.0); HEMOGLOBIN 10.9 g/dl (12.0-15.5); MEAN CORPUSCULAR HEMOGLOBIN 28.8 pg (27.0-33.0); MEAN CORPUSCULAR HGB CONC 33.4 g/dl (32.0-36.5); PLATELET COUNT, AUTOMATED 183 10^3/uL (150-450); RED BLOOD COUNT 3.79 10^6/uL (4.00-5.40); WHITE BLOOD COUNT 22.8 10^3/uL (4.0-10.0)
[2020-12-25 08:24] LABS: EOSINOPHILS 1 % (0-3); LYMPHOCYTES 2 % (16-44); MONOCYTES 5 % (0-5); NEUTROPHILS 65 % (28-66)
[2020-12-25 08:25] LABS: ANISOCYTOSIS 1+; PLATELET ESTIMATE NORMAL (NORMAL)
[2020-12-25 08:57] LABS: ALBUMIN 2.7 GM/DL (3.2-5.2); ALT/SGPT 27 U/L (12-78); BILIRUBIN,TOTAL 0.2 MG/DL (0.2-1.0); BLOOD UREA NITROGEN 23 MG/DL (7-18); CALCIUM LEVEL 8.1 MG/DL (8.5-10.1); CARBON DIOXIDE LEVEL 25 MEQ/L (21-32); CHLORIDE LEVEL 102 MEQ/L (98-107); CREATININE FOR GFR 0.92 MG/DL (0.55-1.30); GLOMERULAR FILTRATION RATE > 60.0 (>60); GLUCOSE, FASTING 145 MG/DL (70-100); POTASSIUM SERUM 3.7 MEQ/L (3.5-5.1); SODIUM LEVEL 133 MEQ/L (136-145); TOTAL PROTEIN 6.6 GM/DL (6.4-8.2)
[2020-12-25] MEDS ORDERED: GABAPENTIN 300 MG CAP PO SCH ×2 (09:00→16:00)
[2020-12-25] MEDS ORDERED: DOCUSATE SODIUM 100MG CAPSULE PO SCH (09:00)
[2020-12-25] MEDS ORDERED: FLUoxetine 20 MG CAP PO SCH (09:00)
[2020-12-25] MEDS ORDERED: buPROPion **XL** TABLET 150MG (WELLBUTRIN XL) PO SCH (09:00)
[2020-12-25] MEDS ORDERED: oxyBUTYnin 5 MG TAB PO SCH (09:00)
[2020-12-25 12:00] VITALS: BP 117/79
[2020-12-25] MEDS ORDERED: VANCOMYCIN HCL 750 MG, VIAL MATE ADAPTER 1 EACH in NS 250 ML IV SCH (12:00)
[2020-12-25] MEDS ORDERED: BUPRENORPHINE/NALOXONE 8-2MG SUBLINGUAL TABLET(SUBOXONE) SL SCH (12:00)
--- NOTE | 2020-12-25 12:02 | REP ---
INDICATION: Right leg swelling and pain ,changed comments per dr Johns COMPARISON: None. TECHNIQUE: Real time compression and duplex Doppler interrogation of the right lower extremity deep venous system is performed. FINDINGS: The right common femoral, superficial femoral and popliteal veins are fully compressible with transducer pressure and demonstrate normal spontaneous and phasic flow, without evidence of deep venous thrombosis. Complex popliteal cyst measures 2.8 x 1.3 x 1.8 cm. IMPRESSION: No evidence of deep venous thrombosis of the right lower extremity femoral popliteal venous system. Complex popliteal cyst measures 2.8 x 1.3 x 1.8 cm. <Electronically signed by Juancho Molina > 12/25/20 9100
[2020-12-25] MEDS ORDERED: KETOROLAC 30 MG/ML 1ML VIAL IV PRN ×2 (13:20→19:00)
--- NOTE | 2020-12-25 15:02 | DS.PDOC ---
Discharge Summary General Date of Admission Dec 25, 2020 at 03:13 Date of Discharge Dec 25, 2020 Discharge Summary PROCEDURES PERFORMED DURING STAY: None ADMITTING DIAGNOSES: 1. Heroin Overdose 2. Sepsis with gram positive bacteremia (culture on 12/24/2020) 3. CHRISTIANO 4. Suspected cellulitis of right ankle 5. Right ankle pain and swelling 6. Hyponatremia 7. IVDA 8. History of Hepatis C DISCHARGE DIAGNOSES: 1. Heroin Overdose 2. Sepsis with gram positive bacteremia (culture on 12/24/2020) 3. CHRISTIANO 4. Suspected cellulitis of right ankle 5. Right ankle pain and swelling 2/2 ankle sprain 6. Hyponatremia 7. IVDA 8. History of Hepatis C COMPLICATIONS/CHIEF COMPLAINT: Christiano,Bacteremia,Cellulitis&Of L Leg, Iv Drug Ab,Sep. HISTORY OF PRESENT ILLNESS: Mrs. Wade is a 40 year old female with IVDA with heroin who presents to the ED for AMS 2/2 heroin overdose. She was just in the ED and had left AMA. She went home to [facility] and was found unconscious by father. Father called EMS who brought her to the ED. She was somnolent, but eventually regained consciousness and became agitated. Blood cultures returned positive with gram positive cocci in pairs and chains. On interview, she complains of right ankle pain. She was playing on a trampoline and rolled her ankle. XR ankle was negative for fracture or dislocation. Patient was given Ketamine in the ED to avoid the use of narcotics. Patient as admitted for sepsis, bacteremia, and drug overdose. HOSPITAL COURSE: This morning, she arouses, but is still lethargic. She did not answer my questions. Nurse reported that she was able to wake up and eat breakfast without issue. Later in the day, she complained of severe ankle pain. Undid MISBAH wrapping and used Doppler. I was able to hear a pulse. There is no ischemic limb and no ankle fracture. I started her on Ketorolac to help with the pain. She was also given her gabapentin and Suboxone. Otherwise, she told me that she was not suicidal. She wanted to control her pain and she gave herself heroin to make the pain go away. After the ketorolac, she said that the pain was still not controlled. She wanted something more. I increased the ketorolac from 15mg to 30mg as her CHRISTIANO had completely resolved and she was receiving IVF. She did not want ketorolac and wanted to leave AMA. She understand that her infection could get worse, she could overdose again, and she could . She understands and just wants to take her heroin to make her ankle pain go away. Patient signed out AMA. Vital Signs/I&Os Vital Signs Date Time Temp Pulse Resp B/P (MAP) Pulse Ox O2 Delivery O2 Flow Rate FiO2 12/25/20 08:00 97.6 91 12 107/60 (76) 99 Room Air 12/25/20 02:28 2.0 I&O- Last 24 Hours up to 6 AM 12/25/20 06:00 Intake Total 1050 ml Balance 1050 ml Laboratory Data Labs 24H Laboratory Tests 2 12/24/20 21:01: Bedside Glucose (Misc Panel) 111H 12/24/20 21:12: Nucleated Red Blood Cells % (auto) 0.0, Anion Gap 8, Glomerular Filtration Rate 39.3L, Lactic Acid Level 2.2*H, Calcium Level 8.9, Total Bilirubin 0.6, Aspartate Amino Transf (AST/SGOT) 60H, Alanine Aminotransferase (ALT/SGPT) 36, Alkaline Phosphatase 66, Total Protein 7.7, Albumin 3.5, Albumin/Globulin Ratio 0.8L 12/25/20 02:09: Lactic Acid Followup at 4 Hours 1.3 12/25/20 02:54: Coronavirus (COVID-19)(PCR) NEGATIVE, Influenza Type A (RT-PCR) NEGATIVE, Influenza Type B (RT-PCR) NEGATIVE, Respiratory Syncytial Virus (PCR) NEGATIVE 12/25/20 03:00: Urine Random Creatinine 42.4, Urine Random Sodium < 10, Urine Opiates Screen POSITIVEH, Urine Methadone Screen NEGATIVE, Urine Barbiturates Screen NEGATIVE, Urine Phencyclidine Screen NEGATIVE, Urine Amphetamines Screen NEGATIVE, Urine Benzodiazepines Screen NEGATIVE, Urine Cocaine Metabolite Screen NEGATIVE, Urine Cannabinoids Screen NEGATIVE 12/25/20 04:50: Methicillin-Resist S.aureus DNA PCR DETECTEDA 12/25/20 06:24: Bedside Glucose (Misc Panel) 163H 12/25/20 07:39: Immature Granulocyte % (Auto) , Neutrophils (%) (Auto) , Nucleated Red Blood Cells % (auto) 0.0, Neutrophils 65, Band Neutrophils 27H, Lymphocytes (Manual) 2L, Monocytes (Manual) 5, Eosinophils (Manual) 1, Anisocytosis 1+, Platelet Estimate NORMAL, Anion Gap 6L, Glomerular Filtration Rate > 60.0, Lactic Acid Level 2.0, Calcium Level 8.1L, Total Bilirubin 0.2#, Aspartate Amino Transf (AST/SGOT) 34, Alanine Aminotransferase (ALT/SGPT) 27, Alkaline Phosphatase 57, Total Protein 6.6, Albumin 2.7#L, Albumin/Globulin Ratio 0.7L CBC/BMP Laboratory Tests 12/24/20 21:12 12/25/20 07:39 FSBS Laboratory Tests Test 12/24/20 21:01 12/25/20 06:24 Range/Units Bedside Glucose (Misc Panel) 111 163 70-105 MG/DL Microbiology Microbiology 12/25/20 Blood Culture, Received Pending 12/25/20 Blood Culture, Received Pending Discharge Medications Scheduled Buprenorphine HCl/Naloxone HCl (Suboxone 8 mg-2 mg Sl Film) 1 Each Film, 2.5 STRIP SL DAILY, (Reported) Bupropion HCl (Wellbutrin Xl) 300 Mg Tab.er.24h, 300 MG PO QAM, (Reported) Dextroamphetamine/Amphetamine (Adderall 30 mg Tablet) 30 Mg Tablet, 30 MG PO BID, (Reported) QAM AND 1PM Fluoxetine Hcl (Fluoxetine HCl) 20 Mg Capsule, 20 MG PO DAILY, (Reported) Gabapentin (Gabapentin) 600 Mg Tablet, 600 MG PO TID, (Reported) Oxybutynin Chloride (Oxybutynin Chloride) 5 Mg Tablet, 5 MG PO TID, (Reported) Quetiapine Fumarate (Quetiapine Fumarate) 200 Mg Tablet, 200 MG PO QHS, (Reported) Sulfamethoxazole/Trimethoprim (Sulfamethoxazole-Tmp Ds Tablet) 1 Each Tablet, 1 TAB PO BID, (Reported) STARTED 12/20/20 X 14 DAYS Allergies Coded Allergies: Penicillins (Verified Allergy, Unknown, 01/05/19) SAPPHIRE MAGALLANES DO Dec 25, 2020 15:02
--- NOTE | 2020-12-25 15:57 | ECGEPIP ---
[facility] - ED Test Date: 2020-12-24 Pat Name: ANU KEYS Department: Room: [place] [address] Gender: Female [employer] Supervisor: ENIO : 1980 Requested By: Diomedes Julian Order Number: [id number] Reading MD: Edis Dover Measurements Intervals [place] Rate: 93 P: 67 MD: 128 QRS: 54 QRSD: 100 T: 70 QT: 366 QTc: 455 Interpretive Statements Normal sinus rhythm Minimal voltage criteria for LVH, may be normal variant Nonspecific ST abnormality Similar to tracing done 11-04-19 Electronically Signed on 12-25-2020 15:56:56 EDT by Edis Dover
[2020-12-26 10:34] LABS: HEPATITIS B SURFACE ANTIGEN NEGATIVE (NEGATIVE)
[2020-12-26 11:01] LABS: HEPATITIS B CORE ANTIBODY IGM NEGATIVE (NEGATIVE)
[2020-12-26 11:46] LABS: HEPATITIS C VIRUS ABY INDEX > 11.0 INDEX (<0.8)
[2020-12-26 12:35] LABS: HEPATITIS A ANTIBODY IGM NEGATIVE (NEGATIVE)
== END 2020-12-25 15:09 | disposition left against medical advice (07) | DRG 816 ==
LOC: M ED 20:40 → EEVIPCON 12-25 03:13 → M ED INP 12-25 03:13 → M ICU 12-25 04:37
PROVIDERS: ADMIT Family Medicine; ATTEND Internal Medicine
DX: T40.1X1A Poisoning by heroin, accidental (unintentional), initial encounter (principal); N17.9 Acute kidney failure, unspecified; L03.115 Cellulitis of right lower limb; E87.1 Hypo-osmolality and hyponatremia; B18.2 Chronic viral hepatitis C; Z79.899 Other long term (current) drug therapy; Z88.0 Allergy status to penicillin

== ENCOUNTER → 2021-09-01 | Outpatient (REF) | payer OTHER ==
[~2021-09-01] MED LIST changes: +BACTDSTA PO; +QUET200T2 PO; -SULF1TAB93 PO
[2021-09-01 22:14] LABS: RSV AMPLIFICATION NEGATIVE (NEGATIVE)
== END ==
LOC: M LAB REF 21:11
PROVIDERS: ATTEND Physician Assistant
DX: R50.9 Fever, unspecified (principal)

== ENCOUNTER → 2023-10-04 | Outpatient (CLI) | payer OTHER ==
[~2023-10-04] MED LIST changes: -OXYB5TAB10 PO; +OXYB5TAB11 PO
== END ==
LOC: M WUC 13:34
PROVIDERS: ATTEND Physician Assistant
DX: S93.401A Sprain of unspecified ligament of right ankle, initial encounter (principal); S93.601A Unspecified sprain of right foot, initial encounter

== ENCOUNTER → 2025-05-10 | Outpatient (CLI) | payer OTHER ==
[~2025-05-10] MED LIST changes: +FLUO-365 PO; -FLUO20CA22 PO; +GABA-1490 PO; -GABA600T4 PO; -IBUP-1022 PO; +IBUP600T42 PO; -OXYB5TAB11 PO; +OXYB5TAB14 PO
== END ==
LOC: M SOG 07:16
PROVIDERS: ATTEND Physician Assistant
DX: M25.571 Pain in right ankle and joints of right foot (principal); M79.671 Pain in right foot